=== PATIENT | female | born 1980 | race Caucasian/White ===

== ENCOUNTER → 2016-11-09 | Outpatient (CLI) | payer OTHER ==
--- NOTE | 2016-11-09 23:56 | US ---
EXAMINATION TYPE: US abdomen complete DATE OF EXAM: 11/09/2016 12:51 PM COMPARISON: NONE CLINICAL HISTORY: 35-year-old female LLQ Pain R10.32. TECHNIQUE: Multiple sonographic images of the abdomen are obtained. FINDINGS: Liver Length: 10.4 cm Gallbladder: Surgically absent cm CBD: 0.3 cm Spleen: 9.3 cm Right Kidney: 9.9 x 3.6 x 5.8 cm Left Kidney: 12.1 x 4.3 x 4.3 cm Pancreas: wnl Liver: wnl Gallbladder: Surgically absent CBD: wnl Spleen: wnl Right Kidney: No hydronephrosis or masses seen Left Kidney: No hydronephrosis or masses seen Upper IVC: Somewhat prominent at 2.1 cm Abd Aorta: wnl The risk reduction counselor provides additional targeted scanning along both the right lower and left lower quadr ants. No discrete sonographic abnormality is seen. IMPRESSION: Unremarkable sonographic examination of the abdomen.
--- NOTE | 2016-11-10 00:30 | US ---
EXAMINATION TYPE: US transvaginal DATE OF EXAM: 11/09/2016 1:29 PM COMPARISON: NONE CLINICAL HISTORY: 35-year-old female E28.2,PCOS. LLQ pain. Status post hysterectomy. TECHNIQUE: Multiple transvaginal sonographic images of the pelvis are obtained. History: Uterus: Surgically absent Right Ovary: Surgically absent Left Ovary: 5.6 x 3.1 x 3.2 cm enlarged secondary to 2 cystic lesions. One is a simple cyst measurin g 2.9 x 2.1 x 2.4 cm. The second is a mildly complex cyst with a internal septations measuring 2.7 x 2.2 x 1.9 cm. No evidence of adnexal abnormality or cul-de-sac free fluid otherwise seen. IMPRESSION: 1. Status post hysterectomy and right-sided oophorectomy. 2. Enlargement of the left ovary secondary to 2 cystic lesions one of which is a 2.9 cm dominant foll icle/functional cyst. The second is a 2.7 cm mildly complex cyst with internal septations. Recommend 6-12 month follow-up exam as a hemorrhagic cyst is in the differential. If the finding persists, cont inued follow-up may be indicated. 3. No pelvic free fluid.
== END | disposition home or self-care (01) ==
LOC: RADUSWWP 12:28
PROVIDERS: ATTEND Family Medicine
DX: N83.202 Unspecified ovarian cyst, left side (principal); R10.32 Left lower quadrant pain; Z90.710 Acquired absence of both cervix and uterus
CPT/HCPCS: 76700; 76830

== ENCOUNTER → 2017-02-16 | Outpatient (CLI) | payer OTHER ==
--- NOTE | 2017-02-17 11:26 | MR ---
EXAMINATION TYPE: MR angio head wo con DATE OF EXAM: 02/16/2017 COMPARISON: NONE HISTORY: Cerebral aneurysm, followup study TECHNIQUE: Time of flight images focusing on the [place] of [place] were performed without contrast. FINDINGS: Internal carotid arteries, vertebrobasilar system are patent. There is no evident aneurysm, vascular malformation, or dissection. Infundibula are present bilaterally as on prior exam extending from inferior margins of the internal carotid arteries. IMPRESSION: No evident aneurysm. Exam shows a stable appearance.
== END | disposition home or self-care (01) ==
LOC: RADMRIMAIN 19:37
PROVIDERS: ATTEND Neurological Surgery
DX: I67.1 Cerebral aneurysm, nonruptured (principal)
CPT/HCPCS: 70544

== ENCOUNTER → 2017-09-10 | Outpatient (CLI) | payer OTHER ==
[2017-09-10 11:56] LABS: Basophils % (A) 0 %; Eosinophils # (A) 0.1 k/uL (0-0.7); Eosinophils % (A) 1 %; HGB 13.7 gm/dL (11.4-16.0); Lymphocytes # (A) 1.5 k/uL (1.0-4.8); Lymphocytes % (A) 25 %; MCH 30.5 pg (25.0-35.0); MCHC 34.3 g/dL (31.0-37.0); Mean Platelet Volume 6.8; Monocytes # (A) 0.2 k/uL (0-1.0); Monocytes % (A) 4 %; Neutrophils # (A) 4.2 k/uL (1.3-7.7); Neutrophils % (A) 69 %; Platelet Count 286 k/uL (150-450); RDW 12.2 % (11.5-15.5); WBC 6.1 k/uL (3.8-10.6)
[2017-09-10 12:11] LABS: ALT 31 U/L (9-52); AST 27 U/L (14-36); Albumin 4.5 g/dL (3.5-5.0); Alkaline Phosphatase 49 U/L (38-126); Anion Gap 11 mmol/L; Blood Urea Nitrogen 16 mg/dL (7-17); Calcium 9.7 mg/dL (8.4-10.2); Carbon Dioxide 28 mmol/L (22-30); Chloride 103 mmol/L (98-107); Cholesterol 168 mg/dL (<200); Glucose 94 mg/dL (74-99); HDL Cholesterol 70 mg/dL (40-60); LDL Cholesterol,Calculated 86 mg/dL (0-99); Potassium 4.4 mmol/L (3.5-5.1); Sodium 142 mmol/L (137-145); Total Bilirubin 0.4 mg/dL (0.2-1.3); Total Protein 7.6 g/dL (6.3-8.2); Triglycerides 60 mg/dL (<150)
[2017-09-10 12:27] LABS: T4, Free (Free Thyroxine) 0.86 ng/dL (0.78-2.19)
[2017-09-10 12:42] LABS: Erythrocyte Sedimentation Rate 8 mm/hr (0-20)
[2017-09-10 17:48] LABS: Rheumatoid Factor 7 IU/mL (0-15)
[2017-09-10 17:56] LABS: Vitamin D 25 Hydroxy 30.3 ng/mL (30.0-100.0)
== END | disposition home or self-care (01) ==
LOC: LABWHC1 11:06
PROVIDERS: ATTEND Internal Medicine Critical Care Medicine
DX: H30.90 Unspecified chorioretinal inflammation, unspecified eye (principal); R00.0 Tachycardia, unspecified; Z79.899 Other long term (current) drug therapy
CPT/HCPCS: 36415; 80053; 80061; 82306; 84439; 84443; 85025; 85652; 86038; 86431

== ENCOUNTER 2017-12-16 02:18 | Emergency (ER) | payer OTHER ==
[2017-12-16 02:30] VITALS: RESP 18
--- NOTE | 2017-12-16 03:11 | ED ---
General Adult HPI - General Chief complaint: Overdose Stated complaint: Medication Ingestion, nausea Time Seen by Provider: 12/16/17 02:40 Source: patient Mode of arrival: ambulatory Limitations: no limitations - History of Present Illness Initial comments: 36-year-old female patient presents to the emergency department today for evaluation after ingesting a possible soapy substance. Patient states that she went to take some cough syrup that she has had since July, states that she swallowed and it tasted foul like soap. States that the sent smells like a perfumed soap and is very bubbly. Patient states that she did try several times to make herself vomit however was unable to get much out. States that she did swallow proximal 5 mL of the substance. States that she has another bottle of a similar medication and the 2 smell very different. She denies any heart burn, nausea, or abdominal pain. Patient states that she has been sick with upper respiratory symptoms for the last 4-5 days. States that her throat has been sore and she has been coughing. She states she is coughing up a small amount of clear sputum. She denies any fevers or chills with this. Patient denies any recent rash, shortness breath, chest pain, abdominal pain, nausea, vomiting, diarrhea, constipation, back pain, numbness, tingling, dizziness, weakness, hematuria, dysuria, urinary urgency, urinary frequency, headache, visual changes, or any other complaints. - Related Data Home Medications Medication Instructions Recorded Confirmed ALPRAZolam [ALPRAZolam] 0.5 mg PO HS PRN 05/16/15 12/23/15 Baclofen [Baclofen] 10 mg PO TID 05/16/15 12/23/15 Albuterol Inhaler [Ventolin Hfa 1 - 2 puff INHALATION RT-Q6H PRN 12/23/15 Inhaler] Atenolol 25 mg PO DAILY 12/23/15 12/23/15 Ergocalciferol [Vitamin D2] 50,000 unit PO QMONTH 12/23/15 12/23/15 Levothyroxine Sodium [Synthroid] 25 mcg PO DAILY 12/23/15 12/23/15 Meloxicam 15 mg PO DAILY 12/23/15 12/23/15 Multivitamins, Thera [Multivitamin] 1 tab PO DAILY 12/23/15 12/23/15 Nitrofurantoin Macrocrystal 100 mg PO BID 12/23/15 12/23/15 [Macrodantin] Previous Rx's Medication Instructions Recorded Hydrocodone/Acetaminophen [[place] 1 each PO Q6HR PRN #15 tab 12/23/15 5-325] Allergies Allergy/AdvReac Type Severity Reaction Status Date / Time medroxyprogesterone acetate Allergy Rash/Hives Verified 12/16/17 02:30 [From Depo-Provera] Sulfa (Sulfonamide AdvReac Swelling Verified 12/16/17 02:30 Antibiotics) Review of Systems ROS Statement: Those systems with pertinent positive or pertinent negative responses have been documented in the HPI. ROS Other: All systems not noted in ROS Statement are negative. Past Medical History Past Medical History: Fibromyalgia, Rheumatoid Arthritis (RA), Thyroid Disorder Additional Past Medical History / Comment(s): retinitis pigmentosa, autoimmune retinopathy, lyme disease,eye disease, POTS, MTHFR, cerebral aneurysms, History of Any Multi-Drug Resistant Organisms: None Reported Past Surgical History: Cholecystectomy, Hysterectomy, Orthopedic Surgery Additional Past Surgical History / Comment(s): carpal tunnel repair, nose, endometriosis, foot, colonoscopy, two bladder sugeries, nose, throat and shoulder surgeries. Past Psychological History: Anxiety, Depression Smoking Status: Never smoker Past Alcohol Use History: Rare Past Drug Use History: None Reported General Exam Limitations: no limitations General appearance: alert, in no apparent distress, other (This is a well- developed, well-nourished adult female patient in no acute distress. Vital signs upon presentation are temperature 98.7F, pulse 85, respirations 18, blood pressure 104/71, pulse ox 100% on room air.) Eye exam: Present: normal appearance, PERRL, EOMI. Absent: scleral icterus, conjunctival injection, periorbital swelling ENT exam: Present: normal exam, mucous membranes moist, TM's normal bilaterally. Absent: normal oropharynx (Pharyngeal erythema, no tonsillar hypertrophy, no tonsillar exudate.) Neck exam: Present: normal inspection. Absent: tenderness, meningismus, lymphadenopathy Respiratory exam: Present: normal lung sounds bilaterally. Absent: respiratory distress, wheezes, rales, rhonchi, stridor Cardiovascular Exam: Present: regular rate, normal rhythm, normal heart sounds. Absent: systolic murmur, diastolic murmur, rubs, gallop, clicks GI/Abdominal exam: Present: soft, normal bowel sounds. Absent: distended, tenderness, guarding, rebound, rigid Neurological exam: Present: alert, oriented X3, CN II-XII intact Psychiatric exam: Present: normal affect, normal mood Skin exam: Present: warm, dry, intact, normal color. Absent: rash Course Vital Signs 12/16/17 12/16/17 02:25 03:38 Temperature 98.7 F Pulse Rate 85 78 Respiratory 18 18 Rate Blood Pressure 104/71 118/60 O2 Sat by Pulse 100 100 Oximetry Medical Decision Making - Medical Decision Making 36-year-old female patient presents to the emergency department today for evaluation after ingesting what she believes to be soap. She is not having abdominal pain, heartburn, or throat burning. She is breathing without difficulty. She does have viral upper respiratory infection as well. Chest x- ray showed no acute cardiopulmonary process. She'll be discharged home at this time to follow-up with her primary care physician for recheck in 1-2 days. Return parameters discussed in detail. She verbalizes understanding and agrees with this plan. - Radiology Data Radiology results: report reviewed, image reviewed Two-view x-ray of the chest is obtained. Heart and mediastinum are normal. Lungs are clear. Diaphragm is normal. Bony thorax appears normal. Impression by Dr. Avila shows normal chest with no change. Disposition Clinical Impression: Viral upper respiratory illness, Ingestion of detergent or soap Disposition: HOME SELF-CARE Condition: Good Instructions: Upper Respiratory Infection (ED) Additional Instructions: Use [id number] nasal decongestants. Increase fluids. Follow-up with your primary care physician for recheck 1-2 days. Return here immediately for any new, worsening, or concerning symptoms. Is patient prescribed a controlled substance at d/c from ED?: No Referrals: Alex Auguste MD [Primary Care Provider] - 1-2 days Time of Disposition: 03:46
--- NOTE | 2017-12-16 03:26 | XR ---
EXAMINATION TYPE: XR chest 2V DATE OF EXAM: 12/16/2017 COMPARISON: 08/13/2017 HISTORY: Cough TECHNIQUE: Frontal and lateral views of the chest are obtained. FINDINGS: Heart and mediastinum are normal. Lungs are clear. Diaphragm is normal. Bony thorax appear s normal. IMPRESSION: Normal chest. No change.
[2017-12-16 03:40] VITALS: BP 118/60; PULSE 78
[2017-12-16] MEDS ORDERED: PSEUDOEPHEDRINE 30 MG TAB PO STA (03:44)
[2017-12-16 04:10] VITALS: TEMP 99.2
== END 2017-12-16 04:07 | disposition home or self-care (01) ==
LOC: EC 02:18
DX: T55.0X1A Toxic effect of soaps, accidental (unintentional), initial encounter (principal); J06.9 Acute upper respiratory infection, unspecified; R11.0 Nausea; M79.7 Fibromyalgia; M06.9 Rheumatoid arthritis, unspecified; E07.9 Disorder of thyroid, unspecified; Z79.1 Long term (current) use of non-steroidal anti-inflammatories (NSAID); Z79.899 Other long term (current) drug therapy; Z88.2 Allergy status to sulfonamides; Z88.8 Allergy status to other drugs, medicaments and biological substances
CPT/HCPCS: 71046; 99284

== ENCOUNTER → 2018-01-31 | Outpatient (CLI) | payer OTHER | END | disposition home or self-care (01) | LOC: LABWHC1 13:16 | PROVIDERS: ATTEND Obstetrics & Gynecology | DX: N83.209 Unspecified ovarian cyst, unspecified side (principal) | CPT/HCPCS: 36415; 86304 ==

== ENCOUNTER → 2018-02-21 | Outpatient (CLI) | payer OTHER ==
[2018-02-21 13:08] LABS: Basophils # (A) 0.1 k/uL (0-0.2); Basophils % (A) 1 %; Eosinophils # (A) 0.1 k/uL (0-0.7); Eosinophils % (A) 2 %; HCT 42.2 % (34.0-46.0); HGB 13.3 gm/dL (11.4-16.0); Lymphocytes # (A) 1.4 k/uL (1.0-4.8); Lymphocytes % (A) 32 %; MCH 29.6 pg (25.0-35.0); MCHC 31.6 g/dL (31.0-37.0); MCV 93.5 fL (80.0-100.0); Mean Platelet Volume 6.9; Monocytes # (A) 0.2 k/uL (0-1.0); Monocytes % (A) 4 %; Neutrophils # (A) 2.5 k/uL (1.3-7.7); Neutrophils % (A) 59 %; Platelet Count 224 k/uL (150-450); RBC 4.51 m/uL (3.80-5.40); RDW 12.4 % (11.5-15.5); WBC 4.3 k/uL (3.8-10.6)
[2018-02-21 13:17] LABS: ALT 26 U/L (9-52); AST 24 U/L (14-36); Blood Urea Nitrogen 19 mg/dL (7-17)
[2018-02-21 13:33] LABS: T4, Free (Free Thyroxine) 0.77 ng/dL (0.78-2.19)
== END | disposition home or self-care (01) ==
LOC: LABWHC1 12:22
PROVIDERS: ATTEND Dermatology
DX: L65.0 Telogen effluvium (principal); L70.8 Other acne; L71.0 Perioral dermatitis; D22.39 Melanocytic nevi of other parts of face; L02.821 Furuncle of head [any part, except face]
CPT/HCPCS: 36415; 82565; 84439; 84443; 84450; 84460; 84520; 85025

== ENCOUNTER → 2018-04-14 | Outpatient (CLI) | payer OTHER | END | disposition home or self-care (01) | LOC: LABWHC1 09:42 | PROVIDERS: ATTEND Psychiatry & Neurology Psychiatry | DX: E05.00 Thyrotoxicosis with diffuse goiter without thyrotoxic crisis or storm (principal) | CPT/HCPCS: 36415; 84436; 84443; 84479; 84481 ==

== ENCOUNTER → 2018-07-14 | Outpatient (CLI) | payer OTHER ==
--- NOTE | 2018-07-15 02:11 | MR ---
EXAMINATION TYPE: MR cervical spine wo con DATE OF EXAM: 07/14/2018 COMPARISON: 04/18/2012 HISTORY: Neck pain, headaches, dizziness, BUE weakness TECHNIQUE: Multiplanar, multisequence images of the cervical spine were acquired. There is mild straightening of the vertebra. There is some degenerative disc space narrowing at C4-5 and C5-6. There is mild spurring of the endplates. The cervical spinal cord has normal signal pattern . There is no edema. The spinal canal measures 8 mm at C5-6. There is some mild cervical cord deformi ty related to the straightening and kyphotic curvature of the mid cervical spine. There is no bere kalyani fracture. The brainstem appears intact. Facet joints are intact. There is no cervical paraspinal mass. The posterior elements are intact. IMPRESSION: Spondylotic changes in the cervical spine with progression of the mild kyphotic curvature at the mid cervical spine. No significant spinal stenosis. No fracture. There is slight decrease in the C5-6 cer vical disc herniation posteriorly compared to old exam consistent with desiccation. Spinal canal is d ecreased from 9 mm to 8 mm compared to old exam. There is decrease in the C3-4 and C4-5 small posteri or disc herniation related to desiccation compared to old exam.
== END | disposition home or self-care (01) ==
LOC: RADMRIMAIN 20:42
PROVIDERS: ATTEND Psychiatry & Neurology Neurology
DX: M50.21 Other cervical disc displacement, high cervical region (principal); M47.812 Spondylosis without myelopathy or radiculopathy, cervical region; M40.292 Other kyphosis, cervical region; Z88.2 Allergy status to sulfonamides; Z88.8 Allergy status to other drugs, medicaments and biological substances
CPT/HCPCS: 72141

== ENCOUNTER 2018-08-19 08:26 | Emergency (ER) | payer OTHER ==
--- NOTE | 2018-08-19 08:40 | ED ---
General Adult HPI - General Chief complaint: Chest Pain Stated complaint: SOB, Chest Pain Time Seen by Provider: 08/19/18 08:29 Source: patient, RN notes reviewed Mode of arrival: ambulatory Limitations: no limitations - History of Present Illness Initial comments: 37-year-old female with a past medical history of fibromyalgia, rheumatoid arthritis, autoimmune retinopathy, POTS presents to the emergency department for a chief complaint of chest pain. Patient states she has had intermittent sharp left-sided chest pain for the past 3 days. She states this comes and goes. She states when it occurs it lasts for a few minutes. Patient denies any inciting factors. She denies any alleviating factors. Patient denies pain worsening with deep breathing. No recent travel. No leg swelling. No oral contraceptive use. No smoking. Patient also admits to shortness of breath that worsens when the pain occurs. She admits she does feel somewhat short of breath at baseline. Patient denies any history of blood clots. Patient does follow with a leather sprayer through [place] for dysrhythmia as as well as POTS. Patient denies any previous MIs. She denies diabetes. Patient does admit to a mild cough for the past 3 weeks. She has been nauseous as well. She has not vomited. Patient say she has also been very anxious as she is having a biopsy of the right breast done. She states this could be contributing to her pain. Patient has no other complaints at this time including abdominal pain, vomiting , headache, or visual changes. - Related Data Home Medications Medication Instructions Recorded Confirmed Atenolol 25 mg PO DAILY 12/23/15 08/19/18 Multivitamins, Thera [Multivitamin] 1 tab PO DAILY 12/23/15 08/19/18 Atenolol 25 mg PO HS PRN 08/19/18 08/19/18 Budesonide-Formot 160-4.5 Mcg 2 puff INHALATION RT-BID 08/19/18 08/19/18 [Symbicort 160-4.5 Mcg Inhaler] Dextroamphetamine/Amphetamine 15 - 30 mg PO DAILY PRN 08/19/18 08/19/18 [Adderall] Montelukast [Singulair] 10 mg PO HS 08/19/18 08/19/18 Allergies Allergy/AdvReac Type Severity Reaction Status Date / Time medroxyprogesterone acetate Allergy Rash/Hives Verified 08/19/18 09:16 [From Depo-Provera] Sulfa (Sulfonamide AdvReac Swelling Verified 08/19/18 09:16 Antibiotics) Review of Systems ROS Statement: Those systems with pertinent positive or pertinent negative responses have been documented in the HPI. ROS Other: All systems not noted in ROS Statement are negative. Past Medical History Past Medical History: Fibromyalgia, Rheumatoid Arthritis (RA), Thyroid Disorder Additional Past Medical History / Comment(s): retinitis pigmentosa, autoimmune retinopathy, lyme disease,eye disease, POTS, MTHFR, cerebral aneurysms, History of Any Multi-Drug Resistant Organisms: None Reported Past Surgical History: Cholecystectomy, Hysterectomy, Orthopedic Surgery Additional Past Surgical History / Comment(s): carpal tunnel repair, nose, endometriosis, foot, colonoscopy, two bladder sugeries, nose, throat and shoulder surgeries. Past Psychological History: Anxiety, Depression Smoking Status: Never smoker Past Alcohol Use History: Rare Past Drug Use History: Marijuana General Exam Limitations: no limitations General appearance: alert, in no apparent distress Head exam: Present: atraumatic, normocephalic, normal inspection Eye exam: Present: normal appearance, PERRL, EOMI. Absent: scleral icterus, conjunctival injection, periorbital swelling ENT exam: Present: normal exam, normal oropharynx, mucous membranes moist, normal external ear exam Neck exam: Present: normal inspection, full ROM. Absent: tenderness, meningismus, lymphadenopathy Respiratory exam: Present: rales (crackles noted to left lung base), chest wall tenderness (left sided mild chest wall tenderness). Absent: respiratory distress, wheezes, rhonchi, stridor Cardiovascular Exam: Present: regular rate, normal rhythm, normal heart sounds. Absent: systolic murmur, diastolic murmur, rubs, gallop, clicks GI/Abdominal exam: Present: soft, normal bowel sounds. Absent: distended, tenderness, guarding, rebound, rigid Extremities exam: Absent: calf tenderness (No calf Tenderness or swelling noted in the lower extremities.) Neurological exam: Present: alert, oriented X3, CN II-XII intact Psychiatric exam: Present: normal affect, normal mood Course Vital Signs 08/19/18 08/19/18 08/19/18 08:30 08:50 10:10 Temperature 96 F L 98.3 F Pulse Rate 90 77 Pulse Rate [ 74 [employer] ] Respiratory 22 18 Rate Blood Pressure 99/71 96/65 O2 Sat by Pulse 99 100 Oximetry EKG Findings - EKG Comments: EKG Findings:: Normal sinus rhythm, ventricular rate 75, AR interval 158, QTC 462 Medical Decision Making - Medical Decision Making 87-year-old well-appearing female presents to the emergency room for a chief complaint of sharp chest pain 3 days. Pain comes and goes. Patient does have tenderness noted to the chest wall. Mild shortness of breath. However vitals are stable, patient is 99% on room air. Perc negative. Chest x-ray clear. EKG shows a normal sinus rhythm without ST elevation. CBC unremarkable. CMP does show a BUN of 27, patient likely dehydrated. Troponin is less than 0.012. Patient is a low risk candidate and heart score of 2. She does not smoke or have diabetes. She will follow up with primary care for chest pain and return here if it worsens. Patient does have hematuria and is aware of this, will follow up with her primary care provider. Urine will be cultured. Gonorrhea and chlamydia added due to many bacteria and mucus. - Lab Data Result diagrams: 08/19/18 08:53 08/19/18 08:53 Lab Results 08/19/18 08/19/18 08/19/18 Range/Units 08:53 08:53 08:53 WBC 4.3 (3.8-10.6) k/uL RBC 4.54 (3.80-5.40) m/uL Hgb 13.9 (11.4-16.0) gm/dL Hct 40.7 (34.0-46.0) % MCV 89.8 (80.0-100.0) fL MCH 30.7 (25.0-35.0) pg MCHC 34.2 (31.0-37.0) g/dL RDW 12.3 (11.5-15.5) % Plt Count 248 (150-450) k/uL Neutrophils % 57 % Lymphocytes % 31 % Monocytes % 6 % Eosinophils % 3 % Basophils % 1 % Neutrophils # 2.4 (1.3-7.7) k/uL Lymphocytes # 1.3 (1.0-4.8) k/uL Monocytes # 0.3 (0-1.0) k/uL Eosinophils # 0.1 (0-0.7) k/uL Basophils # 0.0 (0-0.2) k/uL PT 11.4 (9.0-12.0) sec INR 1.1 (<1.2) APTT 25.5 (22.0-30.0) sec Sodium 138 (137-145) mmol/L Potassium 4.1 (3.5-5.1) mmol/L Chloride 104 (98-107) mmol/L Carbon Dioxide 22 (22-30) mmol/L Anion Gap 12 mmol/L BUN 27 H (7-17) mg/dL Creatinine 0.89 (0.52-1.04) mg/dL Est GFR (CKD-EPI)AfAm >90 (>60 ml/min/1.73 sqM) Est GFR (CKD-EPI)NonAf 82 (>60 ml/min/1.73 sqM) Glucose 81 (74-99) mg/dL Calcium 9.7 (8.4-10.2) mg/dL Magnesium 2.0 (1.6-2.3) mg/dL Total Bilirubin 1.1 (0.2-1.3) mg/dL AST 25 (14-36) U/L ALT 35 (9-52) U/L Alkaline Phosphatase 49 (38-126) U/L Troponin I (0.000-0.034) ng/mL Total Protein 7.8 (6.3-8.2) g/dL Albumin 4.9 (3.5-5.0) g/dL Amylase 54 (30-110) U/L Lipase 98 (23-300) U/L Urine Color Urine Appearance (Clear) Urine pH (5.0-8.0) Ur Specific [place] (1.001-1.035) Urine Protein (Negative) Urine Glucose (UA) (Negative) Urine Ketones (Negative) Urine Blood (Negative) Urine Nitrite (Negative) Urine Bilirubin (Negative) Urine Urobilinogen (<2.0) mg/dL Ur Leukocyte Esterase (Negative) Urine RBC (0-5) /hpf Urine WBC (0-5) /hpf Ur Squamous Epith Cells (0-4) /hpf Urine Bacteria (None) /hpf Urine Mucus (None) /hpf Influenza Type A RNA (Not Detectd) Influenza Type B (PCR) (Not Detectd) 08/19/18 08/19/18 08/19/18 Range/Units 08:53 08:53 08:53 WBC (3.8-10.6) k/uL RBC (3.80-5.40) m/uL Hgb (11.4-16.0) gm/dL Hct (34.0-46.0) % MCV (80.0-100.0) fL MCH (25.0-35.0) pg MCHC (31.0-37.0) g/dL RDW (11.5-15.5) % Plt Count (150-450) k/uL Neutrophils % % Lymphocytes % % Monocytes % % Eosinophils % % Basophils % % Neutrophils # (1.3-7.7) k/uL Lymphocytes # (1.0-4.8) k/uL Monocytes # (0-1.0) k/uL Eosinophils # (0-0.7) k/uL Basophils # (0-0.2) k/uL PT (9.0-12.0) sec INR (<1.2) APTT (22.0-30.0) sec Sodium (137-145) mmol/L Potassium (3.5-5.1) mmol/L Chloride (98-107) mmol/L Carbon Dioxide (22-30) mmol/L Anion Gap mmol/L BUN (7-17) mg/dL Creatinine (0.52-1.04) mg/dL Est GFR (CKD-EPI)AfAm (>60 ml/min/1.73 sqM) Est GFR (CKD-EPI)NonAf (>60 ml/min/1.73 sqM) Glucose (74-99) mg/dL Calcium (8.4-10.2) mg/dL Magnesium (1.6-2.3) mg/dL Total Bilirubin (0.2-1.3) mg/dL AST (14-36) U/L ALT (9-52) U/L Alkaline Phosphatase (38-126) U/L Troponin I <0.012 (0.000-0.034) ng/mL Total Protein (6.3-8.2) g/dL Albumin (3.5-5.0) g/dL Amylase (30-110) U/L Lipase (23-300) U/L Urine Color Yellow Urine Appearance Cloudy H (Clear) Urine pH 6.0 (5.0-8.0) Ur Specific [place] 1.027 (1.001-1.035) Urine Protein 2+ H (Negative) Urine Glucose (UA) Negative (Negative) Urine Ketones 1+ H (Negative) Urine Blood Moderate H (Negative) Urine Nitrite Negative (Negative) Urine Bilirubin Negative (Negative) Urine Urobilinogen <2.0 (<2.0) mg/dL Ur Leukocyte Esterase Trace H (Negative) Urine RBC 12 H (0-5) /hpf Urine WBC 1 (0-5) /hpf Ur Squamous Epith Cells 4 (0-4) /hpf Urine Bacteria Many H (None) /hpf Urine Mucus Many H (None) /hpf Influenza Type A RNA Not Detected (Not Detectd) Influenza Type B (PCR) Not Detected (Not Detectd) Disposition Clinical Impression: Atypical chest pain, Chest wall tenderness Disposition: TRANSFER TO PSYCH HOSP/UNIT Condition: Good Instructions (If sedation given, give patient instructions): Chest Pain (ED) Additional Instructions: Please follow up with primary care in 1-2 days for chest pain and blood in urine.. Drink plenty of fluids for dehydration. If you're having worsening symptoms such as increased chest pain or shortness of breath return here immediately to the emergency department. Is patient prescribed a controlled substance at d/c from ED?: No Referrals: Alex Auguste MD [Primary Care Provider] - 1-2 days Time of Disposition: 10:46
[2018-08-19] MEDS ORDERED: ONDANSETRON 4 MG/2 ML VIAL IVP STA (08:48)
[2018-08-19] MEDS ORDERED: SODIUM CHLORIDE 0.9% 1,000 ML IV STA (08:48)
[2018-08-19] MEDS ORDERED: MORPHINE SULFATE 2 MG/ML SYRINGE IVP STA (08:48)
[2018-08-19] MEDS ORDERED: ASPIRIN 81 MG PO STA (08:48)
--- NOTE | 2018-08-19 09:24 | XR ---
EXAMINATION TYPE: XR chest 2V DATE OF EXAM: 08/19/2018 COMPARISON: 12/16/2017 INDICATION: Chest pain TECHNIQUE: Frontal and lateral views of the chest are obtained. FINDINGS: The heart size is normal. The pulmonary vasculature is normal. The lungs are clear. IMPRESSION: 1. No acute pulmonary process.
[2018-08-19 09:35] LABS: Basophils % (A) 1 %; Eosinophils # (A) 0.1 k/uL (0-0.7); Eosinophils % (A) 3 %; HCT 40.7 % (34.0-46.0); HGB 13.9 gm/dL (11.4-16.0); Lymphocytes # (A) 1.3 k/uL (1.0-4.8); Lymphocytes % (A) 31 %; MCH 30.7 pg (25.0-35.0); MCHC 34.2 g/dL (31.0-37.0); MCV 89.8 fL (80.0-100.0); Mean Platelet Volume 6.4; Monocytes # (A) 0.3 k/uL (0-1.0); Monocytes % (A) 6 %; Neutrophils # (A) 2.4 k/uL (1.3-7.7); Neutrophils % (A) 57 %; Platelet Count 248 k/uL (150-450); RBC 4.54 m/uL (3.80-5.40); RDW 12.3 % (11.5-15.5); WBC 4.3 k/uL (3.8-10.6)
[2018-08-19 09:39] LABS: Appearance,Urine Cloudy (Clear); Bacteria,Urine Many /hpf; Bilirubin,Urine Negative (Negative); Blood,Urine Moderate (Negative); Color,Urine Yellow; Glucose,Urine (UA) Negative (Negative); Ketones,Urine 1+ (Negative); Leukocyte Esterase,Urine Trace (Negative); Mucus,Urine Many /hpf; Nitrite,Urine Negative (Negative); Protein,Urine 2+ (Negative); RBC,Urine 12 /hpf (0-5); Specific Gravity,Urine 1.027 (1.001-1.035); Squamous Epithelial Cell,Urine 4 /hpf (0-4); Urobilinogen,Urine <2.0 mg/dL (<2.0); WBC,Urine 1 /hpf (0-5)
[2018-08-19 09:43] LABS: ALT 35 U/L (9-52); AST 25 U/L (14-36); Albumin 4.9 g/dL (3.5-5.0); Alkaline Phosphatase 49 U/L (38-126); Amylase 54 U/L (30-110); Anion Gap 12 mmol/L; Blood Urea Nitrogen 27 mg/dL (7-17); Calcium 9.7 mg/dL (8.4-10.2); Carbon Dioxide 22 mmol/L (22-30); Chloride 104 mmol/L (98-107); Glucose 81 mg/dL (74-99); Lipase 98 U/L (23-300); Potassium 4.1 mmol/L (3.5-5.1); Sodium 138 mmol/L (137-145); Total Bilirubin 1.1 mg/dL (0.2-1.3); Total Protein 7.8 g/dL (6.3-8.2)
[2018-08-19 09:45] LABS: INR 1.1 (<1.2)
[2018-08-19 09:46] LABS: Partial Thromboplastin Time 25.5 sec (22.0-30.0); Prothrombin Time 11.4 sec (9.0-12.0)
[2018-08-19 10:12] VITALS: RESP 18
[2018-08-19 11:08] VITALS: BP 102/65; PULSE 75; TEMP 98
[2018-08-20 13:30] LABS: C. trachomatis,PCR Negative (Neg,Equiv); Chlamydia trachomatis Source Urine; N. gonorrhoeae,PCR Negative (Neg,Equiv); Neisseria Source Urine
== END 2018-08-19 11:05 | disposition home or self-care (01) ==
LOC: EC 08:26
DX: R07.89 Other chest pain (principal); R06.02 Shortness of breath; R05 Cough; R31.9 Hematuria, unspecified; F41.9 Anxiety disorder, unspecified; Z79.51 Long term (current) use of inhaled steroids; Z79.899 Other long term (current) drug therapy; Z88.2 Allergy status to sulfonamides; Z88.8 Allergy status to other drugs, medicaments and biological substances
CPT/HCPCS: 36415; 71046; 80053; 81001; 82150; 83690; 83735; 84484; 85025; 85610; 85730; 87086; 87491; 87502; 87591; 93005; 96361; 96374; 99285

== ENCOUNTER → 2018-08-26 | Outpatient (CLI) | payer OTHER ==
[2018-08-26 13:00] VITALS: BP 107/63; PULSE 81; RESP 16; BMI 18.4
--- NOTE | 2018-08-26 13:51 | P.GSHP ---
History of Present Illness H&P Date: 08/26/18 Chief Complaint: nodule in the left breast Michelle is a 37-year-old white female who presents with a nodule which she noted under the right nipple areolar complex. She states that she has had bilateral breast implants for approximately 16 years. Over the last several years she has noticed some increased nodularity under both nipple areolar complexes that on the right is become more prominent. She had a bilateral mammogram performed on . The bilateral mammogram was felt to be benign but a right breast ultrasound was performed. On the right breast ultrasound the patient was noted to have a lobulated heterogeneous hypoechoic area which was approximately 9 x 11 mm in size. Ultrasound core biopsy was recommended of this area. No ultrasound was performed of the left breast. The patient has had no breast biopsy in the past. She has no history of any trauma or infection in the breast. The patient complains of aching discomfort in her right lateral breast with extension into the axilla. She has had extensive orthopedic procedures including bilateral shoulder surgery the right shoulder was operated on once in the left shoulder 3 times. Additionally she has degenerative disc disease in her cervical spine and has been recommended to undergo surgery for this. The patient drinks coffee several times a week. She also eats chocolate several times a week. She does not drink soda. She does not smoke and is not exposed to secondhand smoke. Family History: maternal grandmother: breast and endometrial cancer maternal great aunt: breast cancer maternal great grandmother: breast father: melanoma paternal uncle: melanoma and brain cancer paternal grandmother: cancer ? type Hormonal History: menarche: 13 pregnacy: 4, children 3, 1 miscarrage, first live : 18. breast fed: yes periods: partial hysterectomy, one ovary left thought had ovarian cancer ( endometriosis) BCP: 1 year hormones: deproprovea had a reaction and hospitalized Surgical history: 1. Cholecystectomy 2. Hysterectomy 3. 2 bladder surgeries 4. 4 shoulder surgeries 5. Carpal tunnel bilaterally 6. Surgery on nose for deviated septum 7. Tonsils and adenoids 8. Polyp some vocal cords 9. Surgery of her left foot 10. Bilateral breast implants Past medical history: 1. Degenerative disc disease 2. Rheumatoid and osteoarthritis 3. Line disease 4. Graves' disease with hyperthyroidism in the past 5. Brain aneurysms being followed conservatively 6. Small CVA in the past 7. Breast pain 8. History of peptic ulcer disease 9. Asthma 10. History of bladder suspensions 11. Clotting abnormality MTHFR , (increased risk for clotting) Social History: smoke: used to smoke socially not now alcohol: 5 drinks/month drugs: Marijuana medical card/at times its used to relax her so she can sleep - Constitutional Constitutional: Reports sweats - EENT Comment: Retinitis pigmentosa Autoimmune retinopathy Bilateral cataracts Eyes: bilateral blurred vision, bilateral pain Ears: bilateral: decreased hearing, tinnitus Ears, nose, mouth and throat: Reports headache, Denies sore throat - Breasts Breasts: bilateral: as per HPI - Cardiovascular Comment: postural orthostatic hypotension syndrome Arrhythmia - Respiratory Comment: asthma Respiratory: Denies cough, Denies 7 - Gastrointestinal Comment: PUD Gastrointestinal: Reports constipation, Reports diarrhea, Denies abdominal pain , Denies nausea, Denies vomiting - Genitourinary (Female) Comment: 2 bladder surgeries suspension UTI abcess on kidney in past Interstitial cystitis Genitourinary: Reports hematuria, Denies dysuria - Menstruation Menstruation: Reports post hysterectomy - Musculoskeletal Comment: degenerative disc disease - Integumentary Comment: dry skin Integumentary: Reports rash - Neurological Comment: brain aneurysm Neurological: Denies numbness, Denies weakness - Psychiatric Psychiatric: Denies anxiety, Denies depression - Endocrine Comment: hypothyroid in the past cortisol levels were high in the past Endocrine: Reports weight change - Hematologic/Lymphatic Comment: none - Allergic/Immunologic Allergic/Immunologic: Reports seasonal allergies Past Medical History Past Medical History: Fibromyalgia, Rheumatoid Arthritis (RA), Thyroid Disorder Additional Past Medical History / Comment(s): retinitis pigmentosa, autoimmune retinopathy, lyme disease,eye disease, POTS, MTHFR, cerebral aneurysms, herniated disc of neck History of Any Multi-Drug Resistant Organisms: None Reported Past Surgical History: Breast Surgery, Cholecystectomy, Hysterectomy, Orthopedic Surgery Additional Past Surgical History / Comment(s): carpal tunnel repair, nose, endometriosis, foot, colonoscopy, two bladder sugeries, nose, throat and 4 shoulder surgeries. bilat breast implants 2001 Past Psychological History: ADD/ADHD, Anxiety, Depression Smoking Status: Former smoker Past Alcohol Use History: Occasional Past Drug Use History: Marijuana Medications and Allergies Home Medications Medication Instructions Recorded Confirmed Type Atenolol 25 mg PO DAILY 12/23/15 08/26/18 History Multivitamins, Thera [Multivitamin] 1 tab PO DAILY 12/23/15 08/22/18 History Atenolol 25 mg PO HS PRN 08/19/18 08/22/18 History Budesonide-Formot 160-4.5 Mcg 2 puff INHALATION RT-BID 08/19/18 08/22/18 History [Symbicort 160-4.5 Mcg Inhaler] Dextroamphetamine/Amphetamine 15 - 30 mg PO DAILY PRN 08/19/18 08/22/18 History [Adderall] Montelukast [Singulair] 10 mg PO HS 08/19/18 08/22/18 History Ciprofloxacin HCl [Cipro] 500 mg PO BID 08/26/18 08/26/18 History Ergocalciferol (Vitamin D2) 50,000 unit PO DAILY 08/26/18 08/26/18 History [Vitamin D2] Vit C/E/Zn/Coppr/Lutein/Zeaxan 1 each PO 08/26/18 History [Preservision Areds 2 Softgel] Vitamin B Complex 1 each PO 08/26/18 History Allergies Allergy/AdvReac Type Severity Reaction Status Date / Time medroxyprogesterone acetate Allergy Rash/Hives Verified 08/26/18 13:06 [From Depo-Provera] Sulfa (Sulfonamide AdvReac Swelling Verified 08/26/18 13:06 Antibiotics) Surgical - Exam Vital Signs Pulse Resp BP Pulse Ox 81 16 107/63 100 08/26/18 12:56 08/26/18 12:56 08/26/18 12:56 08/26/18 12:56 BMI 18.5 - General thin - Eyes normal ocular movement - ENT no hearing loss, no congestion - Neck no masses, trachea midline - Respiratory normal respiratory effort, clear to auscultation - Cardiovascular Rhythm: regular Heart Sounds: normal: S1, S2 - Abdomen Abdomen: soft, non tender, no guarding, no rigid, no rebound - Integumentary normal turgor tatoo - Neurologic no disoriented, no combative - Musculoskeletal normal gait, normal posture - Psychiatric oriented to time, oriented to person, oriented to place, speech is normal, memory intact breast exam: Right breast exam: Multiple positional exam changes related to prior implant placement on examination there is a small area of nodularity in the retroareolar region which may be scar tissue with fibrocystic disease No other masses or nodules of concern noted Right axilla: No adenopathy of concern Left breast: Multiple positional exam changes related to prior implant placement on examination there is slight increased nodularity in the retroareolar region with no discrete dominant mass noted Left axilla: No adenopathy of concern Results mammogram and ultrasound results reviewed Assessment and Plan Assessment: Impression: 1. Degenerative disc disease 2. Rheumatoid and osteoarthritis 3. Kotlik disease 4. Graves' disease with hyperthyroidism in the past 5. Brain aneurysms being followed conservatively 6. Small CVA in the past 7. Breast pain 8. History of peptic ulcer disease 9. Asthma 10. History of bladder suspensions 11. Clotting abnormality MTHFR , (increased risk for clotting) 12. family history of cancer 13. abnormal uyltrasound of the right breast 14. nodule of the right breast 15. ? breast pain felt to be musculoskeletal in nature 16. scoliosis Plan: 1. Ultrasound-guided biopsy of right breast lesion 2. Await results of left breast ultrasound 3. Abstain from caffeine to help decrease fibrocystic breast discomfort 4. continue to follow with neurosurgeon CC: Dr. Holland, Dr. Izquierdo, DR. Vitaliy Baker ([place])
--- NOTE | 2018-08-29 08:31 | USB ---
Reason for exam: clinical finding. History: Family history of breast cancer in maternal grandmother. Implants in both breasts, 2001. Indicated problem(s): palpable abnormality and breast implant problem in the left breast. US Breast LT Left complete breast ultrasound includes all four quadrants, the retroareolar region and axilla. Finding demonstrates no cystic or solid lesion seen. The implant valve is under the palpable region. These results were verbally communicated with the patient and result sheet given to the patient on 08/26/18. ASSESSMENT: Probably benign, BI-RAD 3 RECOMMENDATION: Ultrasound of the left breast in 6 months. Manage patient on a clinical basis.
== END ==
LOC: WWCWWP 12:50
PROVIDERS: ATTEND Surgery
DX: N63.20 Unspecified lump in the left breast, unspecified quadrant (principal)

== ENCOUNTER → 2018-08-29 | Outpatient (CLI) | payer OTHER ==
[2018-08-29 12:42] LABS: Basophils % (A) 1 %; Eosinophils % (A) 1 %; HCT 40.1 % (34.0-46.0); HGB 13.1 gm/dL (11.4-16.0); Lymphocytes # (A) 1.6 k/uL (1.0-4.8); Lymphocytes % (A) 38 %; MCH 29.8 pg (25.0-35.0); MCHC 32.6 g/dL (31.0-37.0); MCV 91.5 fL (80.0-100.0); Mean Platelet Volume 6.9; Monocytes # (A) 0.2 k/uL (0-1.0); Monocytes % (A) 4 %; Neutrophils # (A) 2.3 k/uL (1.3-7.7); Neutrophils % (A) 54 %; Platelet Count 251 k/uL (150-450); RBC 4.38 m/uL (3.80-5.40); RDW 12.2 % (11.5-15.5); WBC 4.2 k/uL (3.8-10.6)
[2018-08-29 20:27] LABS: ALT 16 U/L (8-44); AST 21 U/L (13-35); Alkaline Phosphatase 40 U/L (41-126); Calcium 9.6 mg/dL (8.7-10.3); Carbon Dioxide 25.2 mmol/L (21.6-31.8); Chloride 107 mmol/L (96-109); Cholesterol 121 mg/dL (0-200); Glucose 88 mg/dL (70-110); LDL Cholesterol,Calculated 61.8 mg/dL (0.0-131.0); Potassium 4.8 mmol/L (3.5-5.5); Sodium 138 mmol/L (135-145); Total Bilirubin 0.4 mg/dL (0.3-1.2); Total Protein 6.6 g/dL (6.2-8.2)
== END | disposition home or self-care (01) ==
LOC: LABWHC1 11:23
PROVIDERS: ATTEND Family Medicine
DX: Z00.00 Encounter for general adult medical examination without abnormal findings (principal)
CPT/HCPCS: 36415; 80053; 80061; 82306; 84439; 84443; 84481; 85025

== ENCOUNTER → 2018-08-31 | Day surgery (SDC) | payer OTHER ==
[2018-08-31 11:50] VITALS: RESP 12; BMI 18.4
[2018-08-31 12:48] VITALS: BP 103/70; PULSE 71; TEMP 98.7
--- NOTE | 2018-08-31 13:55 | USB ---
EXAMINATION TYPE: US breast needle core RT, MG diagnostic mammo RT wo CAD DATE OF EXAM: 08/31/2018 CLINICAL HISTORY: R92.8 ABNORMAL MAMMOGRAM. Abnormal outside ultrasound. TECHNIQUE: Ultrasound guided core biopsy of right breast with clip placement and follow-up two-view m ammogram. COMPARISON: NONE FINDINGS: The procedure of ultrasound guided core biopsy was explained to the patient. Benefits, alt ernatives, and risks were discussed. Risks included possible implant rupture. An informed consent was then obtained. The patient was placed in supine positioning for imaging and for the procedure. Preprocedure imaging redemonstrates a vague hypoechoic subcentimeter area just below the dermal layer inferior retroareol ar region, not definitive lesion. Lesion was not overly suspicious and appears similar to adjacent fi broglandular tissue. Given options of short-term follow-up and sampling patient requested sampling. T he overlying skin was prepped and draped in usual sterile fashion. Lidocaine buffered with bicarbona te was used as anesthetic into the skin and subcutaneous tissue up to area of concern in the right br east. A zane was made with surgical scalpel. Under ultrasound guidance, a 18-gauge Bard device was used to obtain 3 core samples. Following this, a biopsy clip was left in lesion. The patient tolerated the procedure well without any immediate complication. The patient was kept in the radiology department for short stay after the procedure and then discharged home in stable condi tion. Postprocedure mammogram shows successful deployment of clip. IMPRESSION: Successful, uncomplicated ultrasound guided core biopsy of area of concern in the right breast, full pathology results to follow. Low index of suspicion noted at time of procedure.
== END ==
LOC: RADUSWWP 11:00
PROVIDERS: ATTEND Surgery
DX: N60.11 Diffuse cystic mastopathy of right breast (principal); Z88.2 Allergy status to sulfonamides; Z88.8 Allergy status to other drugs, medicaments and biological substances
CPT/HCPCS: 88305; 77065; 19083; A4648; J2001

== ENCOUNTER → 2018-09-15 | Outpatient (CLI) | payer OTHER ==
[2018-09-15 09:55] VITALS: BP 109/74; PULSE 77; RESP 16; BMI 18.7
--- NOTE | 2018-09-15 10:20 | P.PN ---
Subjective Progress Note Date: 09/15/18 Michelle is a 37 -year-old white female who was initially seen on 3118. At that time she was concerned about a nodule in her right nipple areolar region. A core biopsy has been performed of this which reveals only fibrocystic change. She has no complaints related to the biopsy. She also at that time noted some increased nodularity under her left nipple complex and ultrasound was performed which was felt to be most likely benign and repeat ultrasound in 6 months time was recommended. The patient does complain of autoimmune-like symptoms related to hives and swelling as well as joint pain. Most recently she has had discomfort in her right lateral chest with extension into the axilla. She has had extensive orthopedic procedures including bilateral shoulder surgery. She additionally has degenerative disc disease in her cervical spine and was told that the cervical spine changes are not related to the discomfort in her right arm and axilla. Objective - Constitutional General appearance: Present: average body habitus - EENT Eyes: Present: EOMI ENT: Present: hearing grossly normal - Respiratory Respiratory: bilateral: CTA - Cardiovascular Rhythm: regular Heart sounds: normal: S1, S2 - Integumentary Integumentary Comment(s): Area of prior biopsy clean and dry right breast, no evidence of any infection Reevaluation of right axilla: Shoddy adenopathy non-worrisome Assessment and Plan Assessment: Impression: 1. Patient status post right breast ultrasound core biopsy benign fibrocystic changes 2. Ultrasound left breast felt to be probably benign repeat left breast ul trasound in 6 months, the region of the implant valve was identified 3. Rheumatoid and osteoarthritis 4.lyme disease 5. graves disease 6. Brain aneurysms 7. Small CVA in the past 8. Breast pain (discussed causes and possible treatment, book given to patient by Keily Araya) 9. History of peptic ulcer disease 10. Asthma 11. Bladder suspension 12. Clotting abnormality 13. Family history of cancer 14. Scoliosis 15. No evidence of any breast cancer at this time Had a discussion with the patient that the findings on pathology related to the biopsy for benign. The patient does continue to complain of discomfort in the right upper outer quadrant of the breast extending into the axilla and in the right upper arm. She has concerns that this may be related to her implants. At this time she is going to consider evaluation at [facility]. She is considering having removal of the implants. I had a discussion with our laboratory and no autoimmune testing for silicone is available at this location. Plan: 1. Repeat bilateral breast ultrasound in 6 months time 2. Repeat examination here in 6 months time 3. Consider evaluation for implant removal as per patient's concerns Cc: Timbo Curry, Dr. Vitaliy Baker
== END ==
LOC: WWCWWP 09:44
PROVIDERS: ATTEND Surgery
DX: Z53.9 Procedure and treatment not carried out, unspecified reason (principal)

== ENCOUNTER → 2018-10-01 | Outpatient (CLI) | payer OTHER ==
--- NOTE | 2018-10-04 13:48 | BMR ---
EXAMINATION TYPE: MR breast BILAT wo/w con DATE OF EXAM: 10/01/2018 COMPARISON: Outside mammogram report dated 08/16/2018 and right breast limited ultrasound report. Left breast ultrasound dated 08/26/2018 and right breast core needle biopsy dated 08/31/2018. HISTORY: Inconclusive mammogram, possible palpable lump in left axilla area, tenderness in arms and a xilla. Recent benign right breast biopsy on 08/31/2018 in regards to a right palpable periareolar abnor mality. Recent left breast ultrasound demonstrating the implant valve at the location of the palpable abnormality, but otherwise negative. TECHNIQUE: A series of fat and water weighted images in the long and short axis views of both breasts are obtained in conjunction with dynamic contrast MRI with subtraction technique. The patient was i njected with 6 mL intravenous Gadavist gadolinium contrast. Three-dimensional and additional postpr ocessing imaging is created on independent workstation and reviewed during official interpretation of this study. FINDINGS: There are bilateral retropectoral saline implants. The breasts are composed of extreme fibr oglandular tissue. There is symmetric moderate background parenchymal enhancement, somewhat limiting sensitivity the exam. There is a retroareolar biopsy marker indicating the previous benign right breast biopsy crating susc eptibility artifact. No evidence of extracapsular rupture is seen. There are small radial folds noted at the medial aspect of the breast implants without evidence of intracapsular rupture. There is no suspicious internal mammary, axillary or intramammary adenopathy. There is a left axillar y lymph node that may correspond to the patient's palpable left abnormality within the axilla measuri ng 7 mm in short axis containing a normal regular fatty hilum and demonstrate no cortical thickening. Smaller left axillary and internal mammary lymph nodes are seen around the periphery of the lateral aspect of the left breast implant. No suspicious T2 hyperintense masses or cystic masses are seen. IMPRESSION: BI-RADS 1-No MRI evidence of malignancy. Annual screening mammography is recommended. Note the patien t's left axillary palpable abnormality could correspond to regular-appearing morphologically normal n onenlarged left axillary and intramammary lymph nodes. Additionally the breast implants demonstrate n o evidence of intracapsular nor extracapsular rupture at this time.
== END ==
LOC: RADMRIMAIN 07:16
PROVIDERS: ATTEND Surgery
DX: R92.2 Inconclusive mammogram (principal); Z80.3 Family history of malignant neoplasm of breast; Z98.82 Breast implant status
CPT/HCPCS: C8908; A9585; 77049

== ENCOUNTER → 2018-10-19 | Outpatient (CLI) | payer OTHER ==
[2018-10-19 16:24] LABS: Thyroid Peroxidase Antibodies 33.8 U/mL (0.0-60.0)
[2018-10-19 17:00] LABS: T4, Free (Free Thyroxine) 0.9 ng/dL (0.80-1.80)
[2018-10-19 18:34] LABS: ACTH 9.44 pg/mL (0.00-45.99)
== END | disposition home or self-care (01) ==
LOC: LABWHC1 08:40
PROVIDERS: ATTEND Internal Medicine
DX: E05.90 Thyrotoxicosis, unspecified without thyrotoxic crisis or storm (principal); E27.40 Unspecified adrenocortical insufficiency
CPT/HCPCS: 36415; 82024; 82533; 84439; 84443; 84445; 84481; 86376

== ENCOUNTER → 2019-01-11 | Outpatient (CLI) | payer OTHER ==
[2019-01-11 12:59] LABS: Basophils % (A) 1 %; Eosinophils # (A) 0.1 k/uL (0-0.7); Eosinophils % (A) 2 %; HCT 39.9 % (34.0-46.0); HGB 13.2 gm/dL (11.4-16.0); Lymphocytes # (A) 1.4 k/uL (1.0-4.8); Lymphocytes % (A) 34 %; MCH 30.3 pg (25.0-35.0); MCHC 33.1 g/dL (31.0-37.0); MCV 91.7 fL (80.0-100.0); Mean Platelet Volume 7.3; Monocytes # (A) 0.2 k/uL (0-1.0); Monocytes % (A) 5 %; Neutrophils # (A) 2.3 k/uL (1.3-7.7); Neutrophils % (A) 56 %; Platelet Count 252 k/uL (150-450); RBC 4.35 m/uL (3.80-5.40); RDW 14.2 % (11.5-15.5); WBC 4.1 k/uL (3.8-10.6)
[2019-01-11 18:13] LABS: African American GFR (CKD) 106.9 (60.0-200.0); Albumin 4.6 g/dL (3.80-4.90); Albumin/Globulin Ratio 2.19 (1.60-3.17); Anion Gap 5.6 mmol/L (4.00-12.00); Calcium 9.7 mg/dL (8.7-10.3); Carbon Dioxide 28.4 mmol/L (21.6-31.8); Globulin 2.1 g/dL (1.6-3.3); Potassium 4.6 mmol/L (3.5-5.5); Total Bilirubin 0.5 mg/dL (0.3-1.2); Total Protein 6.7 g/dL (6.2-8.2)
[2019-01-11 18:42] LABS: T4, Free (Free Thyroxine) 0.8 ng/dL (0.80-1.80)
== END | disposition home or self-care (01) ==
LOC: LABWHC1 12:20
PROVIDERS: ATTEND Family Medicine
DX: R94.6 Abnormal results of thyroid function studies (principal)
CPT/HCPCS: 36415; 80053; 84439; 84443; 84481; 85025

== ENCOUNTER → 2019-03-09 | Outpatient (CLI) | payer OTHER ==
[2019-03-09 19:33] LABS: T4, Free (Free Thyroxine) 0.9 ng/dL (0.80-1.80)
== END | disposition home or self-care (01) ==
LOC: LABWHC1 11:19
PROVIDERS: ATTEND Internal Medicine
DX: E05.90 Thyrotoxicosis, unspecified without thyrotoxic crisis or storm (principal)
CPT/HCPCS: 36415; 84439; 84443

== ENCOUNTER → 2019-03-20 | Outpatient (CLI) | payer OTHER ==
--- NOTE | 2019-03-20 12:03 | USB ---
Reason for exam: clinical finding. History: Family history of breast cancer in maternal grandmother. Benign US breast needle core RT of the right breast, August 31, 2018. Implants in both breasts, 2002. Indicated problem(s): palpable abnormality in the right breast. Physical Findings: Nurse Summary: retroareolar palpable lump (nurse cw). US Breast BILAT Left complete breast ultrasound includes all four quadrants, the retroareolar region and axilla. Finding demonstrates a triangle fluid at 12 o'clock, hypoechoic adjacent to the implant, not clearly seen on 10/01/18 MRI, 5 month follow up recommended, a 0.5 x 1.0 x 0.7cm oval, vascular node at 2 o'clock, prominent but nonenlarged, 5 month follow up recommended and subareolar palpable corresponds to the implant valve. Right complete breast ultrasound includes all four quadrants, the retroareolar region and axilla. Finding demonstrates 7 o'clock palpable finding corresponds to the implant valve. These results were verbally communicated with the patient and result sheet given to the patient on 03/20/19. ASSESSMENT: Probably benign, BI-RAD 3 RECOMMENDATION: Follow-up diagnostic mammogram of both breasts in 5 months. Back on schedule for July 2019. Ultrasound of the left breast in 5 months.
== END | disposition home or self-care (01) ==
LOC: RADUSWWP 10:19
PROVIDERS: ATTEND Surgery
DX: R92.8 Other abnormal and inconclusive findings on diagnostic imaging of breast (principal); Z80.3 Family history of malignant neoplasm of breast; Z98.82 Breast implant status

== ENCOUNTER → 2019-03-23 | Outpatient (CLI) | payer OTHER ==
[2019-03-23 10:04] VITALS: BP 110/73; PULSE 62; RESP 16; TEMP 97.7; BMI 18.7
--- NOTE | 2019-03-23 10:50 | P.PN ---
Subjective Progress Note Date: 03/23/19 Principal diagnosis: breast pain, questions abour breast implants recalled for increased risk of anaplastic large cell lymphoma Chief complaint: Mastodynia, fibrocystic breast changes, bilateral breast implants recently have been recalled, textured silicone with saline on the inside patient has questions regarding these Michelle is a 38-year-old white female who was initially seen on 3119. At that time she was concerned about a nodule in her right nipple areolar region. A core biopsy was performed which revealed only fibrocystic changes. She also at that time noticed some increased nodularity under her left nipple complex and an ultrasound was performed which is felt to be most likely benign and repeat ultrasound in 6 months time was recommended. Repeat ultrasound was performed on [id number]. This revealed in the left breast in the triangle fluid at 12:00 hypoechoic adjacent to the implant not clearly seen on [id number] MRI. 5 month follow-up recommended. A 0.5 x 1 x 0.7 cm of vascular noted to o'clock which was prominent was noted but not enlarged, a 5 month follow-up was recommended. The subareolar palpable lesion corresponded to the implant valve. Right complete breast ultrasound revealed at 7:00 probable finding corresponded to the implant valve. The recommendation after ultrasound was 4 bilateral repeat mammogram in 5 months and an ultrasound of the left breast in 5 months as well. The patient continues to have autoimmune-like symptoms related to hives and swelling in her joints. The patient is having bilateral chest wall discomfort with extension into both axillas. The location is both breast throughout both breasts. This has been ongoing for several years. She is uncertain as to what precipitates the pain. She has had implants in place for 17 years. The implants were recently recalled as they are textured silicone shell saline filled implants. Additionally she has bilateral periareolar nodularity. The nodularity has not changed. We have discussed causes of fibrocystic disease including caffeinated beverages which the patient drinks only rarely. She does not eat chocolate. And she does not smoke and is not exposed to secondhand smoke. Family History: maternal grandmother: breast and endometrial cancer maternal great aunt: breast cancer maternal great grandmother: breast father: melanoma paternal uncle: melanoma and brain cancer paternal grandmother: cancer ? type Hormonal History: menarche: 13 pregnacy: 4, children 3, 1 misc[place]age, first live : 18. breast fed: yes periods: partial hysterectomy, one ovary left thought had ovarian cancer (endometriosis) BCP: 1 year hormones: deproprovea had a reaction and hospitalized Surgical history: 1. Cholecystectomy 2. Hysterectomy 3. 2 bladder surgeries 4. 4 shoulder surgeries 5. Carpal tunnel bilaterally 6. Surgery on nose for deviated septum 7. Tonsils and adenoids 8. Polyp some vocal cords 9. Surgery of her left foot 10. Bilateral breast implants Past medical history: 1. Degenerative disc disease 2. Rheumatoid and osteoarthritis 3. [place] disease 4. Naila's thyroiditis in the past her thyroid functions are now normal, she is not on any thyroid medication 5. Brain aneurysms being followed conservatively 6. Small CVA in the past 7. Breast pain 8. History of peptic ulcer disease 9. Asthma 10. History of bladder suspensions 11. Clotting abnormality MTHFR , (increased risk for clotting)not taking anything Social History: smoke: used to smoke socially not now alcohol: 5 drinks/month drugs: Marijuana medical card/at times its used to relax her so she can sleep - Constitutional Constitutional: Reports sweats - EENT Comment: Retinitis pigmentosa Autoimmune retinopathy Bilateral cataracts Eyes: bilateral blurred vision, bilateral pain Ears: bilateral: decreased hearing, tinnitus Ears, nose, mouth and throat: Reports headache, Denies sore throat - Breasts Breasts: bilateral: as per HPI, bilateral breast pain greatest upper outer quadrant areas, bilateral fibrocystic changes with nodularity particularly in t he periareolar areas, bilateral breast implants approximately 17 years ago these are textured silicone shell saline - Cardiovascular Comment: postural orthostatic hypotension syndrome Arrhythmia - Respiratory Comment: asthma Respiratory: Denies cough, - Gastrointestinal Comment: PUD, gastritis, colitis Gastrointestinal: Reports constipation, Reports diarrhea, Denies abdominal pain, Denies nausea, Denies vomiting - Genitourinary (Female) Comment: 2 bladder surgeries suspension UTI abcess on kidney in past Interstitial cystitis Genitourinary: Reports hematuria, Denies dysuria - Menstruation Menstruation: Reports post hysterectomy - Musculoskeletal Comment: degenerative disc disease - Integumentary Comment: dry skin Integumentary: Reports rash - Neurological Comment: brain aneurysm, prior CVA Neurological: Denies numbness, Denies weakness - Psychiatric Psychiatric: Denies anxiety, Denies depression - Endocrine Comment: hypothyroid in the past cortisol levels were high in the past Endocrine: Reports weight change - Hematologic/Lymphatic Comment: none - Allergic/Immunologic Allergic/Immunologic: Reports seasonal allergies Past Medical History Past Medical History: Fibromyalgia, Rheumatoid Arthritis (RA), Thyroid Disorder Additional Past Medical History / Comment(s): retinitis pigmentosa, autoimmune retinopathy, lyme disease,eye disease, POTS, MTHFR, cerebral aneurysms, herniated disc of neck History of Any Multi-Drug Resistant Organisms: None Reported Past Surgical History: Breast Surgery, Cholecystectomy, Hysterectomy, Orthopedic Surgery Additional Past Surgical History / Comment(s): carpal tunnel repair, nose, endometriosis, foot, colonoscopy, two bladder sugeries, nose, throat and 4 shoulder surgeries. bilat breast implants 2001 Past Psychological History: ADD/ADHD, Anxiety, Depression Smoking Status: Former smoker Past Alcohol Use History: Occasional Past Drug Use History: Marijuana Objective - Vital Signs Vital signs: Vital Signs Temp 97.7 F 03/23/19 09:58 Pulse 62 03/23/19 09:58 Resp 16 03/23/19 09:58 BP 110/73 03/23/19 09:58 Pulse Ox 100 03/23/19 09:58 Intake & Output 03/22/19 03/23/19 03/23/19 18:59 06:59 18:59 Weight 57.606 kg - Exam BMI 18.8 - Constitutional General appearance: Present: average body habitus - EENT Eyes: Present: EOMI ENT: Present: hearing grossly normal - Neck Neck: Present: normal ROM - Respiratory Respiratory: bilateral: CTA - Cardiovascular Rhythm: regular Heart sounds: normal: S1, S2 - Gastrointestinal General gastrointestinal: Present: soft - Integumentary Integumentary: Present: normal turgor - Musculoskeletal Musculoskeletal: Present: gait normal - Psychiatric Psychiatric: Present: A&O x's 3, appropriate affect, intact judgment & insight - Additional findings Additional findings: breast exam: Right breast: Multi-positional exam reveals implant in place, fibrocystic changes, no nodularity of concern Right axilla: Shotty adenopathy noticed discrete adenopathy of concern Left breast: Multi-positional exam reveals implant in place, fibrocystic changes, no nodularity of concern Left axilla: No adenopathy of concern Assessment and Plan Assessment: Impression: 1. Left breast textured silicone implant with fluid now noted around the breast 2. Prior core biopsy of right breast benign fibrocystic changes 3. Bilateral breast implants for approximately 17 years 4. Fibrocystic breast disease 5. Rheumatoid and osteoarthritis 6. Lyme disease 7. Thyroid disease/Naila's 8. Brain aneurysms 9. Small CVA in the past 10. Asthma 11. Bladder suspension 12 clotting abnormality 13. Family history of cancer 14. Scoliosis 15. No lesions of concern noted in the right breast After discussion with the patient regarding textured silicone shell implants and increased risk of anaplastic large cell lymphoma. Secondary to the fact that there is some fluid noted in relationship to the left breast implant which was not present previously the fluid will be sampled and sent for amino testing CD30. I discussed this with the radiologist. It is only a small amount of fluid however it is Onset. The patient understands the risks and benefits and this will be performed. Following this she will return and we will discuss further treatment options. She continues to have bilateral breast pain. Patient does not drink caffeinated beverages, she does not eat chocolate, she does not smoke and is not exposed to secondhand smoke, and is not taking any hormones. Plan: 1. Ultrasound-guided aspiration of fluid around the left breast implant 2. We have consider genetic counseling and she states her insurance will not cover it at this time 3. Medical management of autoimmune diseases 4. Possible consultation with plastic surgery for implant removal after fluid aspiration Kalyani Echeverria
== END | disposition home or self-care (01) ==
LOC: WWCWWP 09:50
PROVIDERS: ATTEND Surgery
DX: Z53.9 Procedure and treatment not carried out, unspecified reason (principal)

== ENCOUNTER → 2019-03-24 | Outpatient (CLI) | payer OTHER ==
--- NOTE | 2019-03-24 19:42 | MR ---
EXAMINATION TYPE: MR angio head wo con DATE OF EXAM: 03/24/2019 COMPARISON: 02/16/2017 HISTORY: Headache / Cerebral aneurysm, nonrupture TECHNIQUE: Time of flight images focusing on the [place] of Matt were performed without contrast. FINDINGS: There is arterial flow in the vertebrobasilar artery system. There is arterial flow in the anterior middle and posterior cerebral arteries. There is arterial flow in both distal internal carot id arteries. There is no evidence of arterial stenosis. There is no evidence of aneurysm or neovascul arity. There is no mass effect. IMPRESSION: Negative exam. No change compared to old exam. No evidence of intracranial aneurysm.
--- NOTE | 2019-03-24 20:40 | MR ---
EXAMINATION TYPE: MR brain wo/w con DATE OF EXAM: 03/24/2019 COMPARISON: HISTORY: Headache / Cerebral aneurysm, nonrupture, vision loss, ringing in ears, balance issues, conf usion TECHNIQUE: Multiplanar, multisequence images of the brain and brainstem is performed without and with IV contras t, utilizing 6 mL intravenous Gadavist . FINDINGS: Ventricles have normal size. There is no mass effect nor midline shift. There is no sign of intracranial hemorrhage. There is no evidence of cerebral edema. There is no evidence of cortical in farct. Corpus callosum appears normal. Brainstem is intact. Sella turcica appears normal. Orbits appe ar normal. There is a 4 mm single focus of increased signal in the white matter left posterior tempor al lobe. IMPRESSION: Single white matter high signal small focus in the left temporal lobe. Otherwise negative exam. Left temporal lobe focus is a change compared to old MR scan of 12/13/2014.
== END ==
LOC: RADMRIMAIN 17:13
PROVIDERS: ATTEND Psychiatry & Neurology Neurology
DX: I67.1 Cerebral aneurysm, nonruptured (principal); R51 Headache
CPT/HCPCS: 70544; 70553; A9585

== ENCOUNTER 2019-03-28 13:32 | Observation (INO) | payer OTHER ==
[2019-03-28] MEDS ORDERED: SODIUM CHLORIDE 0.9% 1,000 ML IV STA ×2 (14:07)
--- NOTE | 2019-03-28 14:13 | ED ---
Chest Pain HPI - General Chief Complaint: Chest Pain Stated Complaint: Side pain, arm & chest pain Time Seen by Provider: 03/28/19 13:57 Source: patient, RN notes reviewed, old records reviewed Mode of arrival: wheelchair Limitations: no limitations - History of Present Illness Initial Comments: Since this 38-year-old female presents prescribed today for evaluation for chief complaint of sudden onset of right-sided abdominal chest pain. Patient remained on the right arm and also complains of some left-sided chest wall pain and pain range on the left arm to the elbow. Patient reports symptoms have happened suddenly and she had an episode of diaphoresis and felt very dizzy and lightheaded at that time. Patient reports that the pain seems to persist on the right side of her chest as well as the left. Patient states that she's had chronic abdominal and chronic chest wall tenderness with this pain seems different. She states that she has extensive medical history including retinopathy and a lesion over her brain which she had an MRI earlier this week which is stable. Patient has had no other significant complaints. - Related Data Home Medications Medication Instructions Recorded Confirmed Atenolol 25 mg PO BID 12/23/15 03/28/19 Budesonide-Formot 160-4.5 Mcg 2 puff INHALATION RT-BID 08/19/18 03/28/19 [Symbicort 160-4.5 Mcg Inhaler] Dextroamphetamine/Amphetamine 15 - 30 mg PO DAILY PRN 08/19/18 03/28/19 [Adderall] Vitamin B Complex 1 cap PO DAILY 08/26/18 03/28/19 Cholecalciferol [Vitamin D3 (25 5,000 unit PO DAILY 03/23/19 03/28/19 Mcg = 1000 Iu)] Cetirizine HCl 10 mg PO DAILY 03/28/19 03/28/19 Melatonin (Unknown Strength) 1 tab PO HS PRN 03/28/19 03/28/19 Allergies Allergy/AdvReac Type Severity Reaction Status Date / Time medroxyprogesterone acetate Allergy Rash/Hives Verified 03/28/19 14:37 [From Depo-Provera] protamine AdvReac Rash/Hives Verified 03/28/19 14:37 Sulfa (Sulfonamide AdvReac Swelling Verified 03/28/19 14:37 Antibiotics) Review of Systems ROS Statement: Those systems with pertinent positive or pertinent negative responses have been documented in the HPI. ROS Other: All systems not noted in ROS Statement are negative. EKG Findings - EKG Comments: EKG Findings:: EKG performed at 1350 pressure is sinus rhythm low voltage.. Possible anterolateral infarct age undetermined. Abnormal EKG. Ventricular 69 bpm. Was 166 most seconds. QRS ration is 82 ms. QT QTC 392/420 ms. Past Medical History Past Medical History: Fibromyalgia, Rheumatoid Arthritis (RA), Thyroid Disorder Additional Past Medical History / Comment(s): retinitis pigmentosa, autoimmune retinopathy, lyme disease,eye disease, POTS, MTHFR, cerebral aneurysms, herniated disc of neck, fluid to left side of her chest History of Any Multi-Drug Resistant Organisms: None Reported Past Surgical History: Breast Surgery, Cholecystectomy, Hysterectomy, Orthopedic Surgery Additional Past Surgical History / Comment(s): carpal tunnel repair, nose, endometriosis, foot, colonoscopy, two bladder sugeries, nose, throat and 4 shoulder surgeries. bilat breast implants 2002 Past Anesthesia/Blood Transfusion Reactions: Postoperative Nausea & Vomiting (PONV) Past Psychological History: ADD/ADHD, Anxiety, Depression Smoking Status: Former smoker Past Alcohol Use History: Occasional Past Drug Use History: Marijuana - Past Family History Mother Additional Family Medical History / Comment(s): strong maternal hx of breast cancer. patient's maternal grandmother and many great aunts/cousins have had a breast cancer Father Additional Family Medical History / Comment(s): several of patient's fathers' aunts and first cousins have been dx with breast cancer (some of from this) General Exam - General Exam Comments Initial Comments: 38 yo female, no distress. General: Well appearing, well nourished, in no distress. Oriented x 3, normal mood and affect . Ambulating without difficulty. Skin: Good turgor, no rash, unusual bruising or prominent lesions Hair: Normal texture and distribution. HEENT: Head: Normocephalic, atraumatic, no visible or palpable masses, depres sions, or scaring. Eyes: Visual acuity intact, conjunctiva clear, sclera non-icteric, EOM intact, PERRL. Ears: EACs clear, TMs translucent & cone of light visualized. hearing intact. Nose: No external lesions, mucosa non-inflamed, septum and turbinates normal Mouth: Mucous membranes moist, no mucosal lesions. Teeth/Gums: No obvious caries or periodontal disease. No gingival inflammation or significant resorption. Pharynx: Mucosa non-inflamed, no tonsillar hypertrophy or exudate Neck: Supple, without lesions, bruits, or adenopathy, thyroid non-enlarged and non-tender Heart: No cardiomegaly or thrills; regular rate and rhythm, no murmur or gallop Lungs: Clear to auscultation and percussion Abdomen: Bowel sounds normal, Patient has minimal right left-sided rib and upper quadrant tenderness. Back: Spine normal without deformity or tenderness, no CVA tenderness Extremities: No amputations or deformities, cyanosis, edema or varicosities, peripheral pulses intact Musculoskeletal: Normal gait and station. No misalignment, asymmetry, crepitation, defects, tenderness, masses, effusions, decreased range of motion, instability, atrophy or abnormal strength or tone in the head, neck, spine, ribs, pelvis or extremities. Neurologic: CN 2-12 normal. Sensation to pain, touch, and proprioception normal. DTRs normal in upper and lower extremities. No pathologic reflexes. Limitations: no limitations Course Vital Signs 03/28/19 03/28/19 03/28/19 13:43 13:52 14:00 Temperature 97.3 F L Pulse Rate 76 72 Respiratory 18 18 Rate Blood Pressure 99/65 100/75 O2 Sat by Pulse 100 100 100 Oximetry 03/28/19 03/28/19 14:30 16:14 Temperature Pulse Rate 64 67 Respiratory 18 16 Rate Blood Pressure 95/78 97/61 O2 Sat by Pulse 100 99 Oximetry Chest Pain [facility] Patient is a 38-year-old female, she presents today for evaluation for diaphoresis and lightheaded episode, with subsequent right-sided left sided chest pain. Patient reports that the pain is persisting. She has feels "off. Patient had EKG was performed showed normal sinus rhythm with low-voltage QRS. She does have full blood pressures but she has been on atenolol for quite some time. She reports her screening representative and put her on many years ago. At the same Patient normal lab work. D-dimer test was negative, and initial troponin is negative. Her symptoms of start approximately one hour prior to arriving to the ER. With episode of diaphoresis discussed the concern for possibility of cardiac syndrome. Patient's case was discussed with , recommended admission for cardiac rule out. Patient is agreeable to this. Disposition Clinical Impression: Chest pain Disposition: ADMITTED IP TO THIS HOSP Condition: Stable Is patient prescribed a controlled substance at d/c from ED?: No Referrals: Alex Auguste MD [Primary Care Provider] - 1-2 days Time of Disposition: 17:41
[2019-03-28 14:52] LABS: INR 0.9 (<1.2)
[2019-03-28 14:53] LABS: ALT 25 U/L (9-52); AST 25 U/L (14-36); African American GFR (CKD) >90 (>60 ml/min/1.73 sqM); Albumin 4.4 g/dL (3.5-5.0); Alkaline Phosphatase 38 U/L (38-126); Anion Gap 7 mmol/L; Blood Urea Nitrogen 22 mg/dL (7-17); Calcium 9.6 mg/dL (8.4-10.2); Carbon Dioxide 28 mmol/L (22-30); Chloride 102 mmol/L (98-107); D-Dimer 0.24 mg/L FEU (<0.60); Glucose 85 mg/dL (74-99); Magnesium 2.2 mg/dL (1.6-2.3); Partial Thromboplastin Time 23.7 sec (22.0-30.0); Potassium 4.9 mmol/L (3.5-5.1); Sodium 137 mmol/L (137-145); Total Bilirubin 0.1 mg/dL (0.2-1.3); Total Protein 7.1 g/dL (6.3-8.2)
[2019-03-28 14:55] LABS: Basophils % (A) 1 %; Eosinophils # (A) 0.1 k/uL (0-0.7); Eosinophils % (A) 2 %; HCT 37.7 % (34.0-46.0); HGB 13.4 gm/dL (11.4-16.0); Lymphocytes # (A) 1.6 k/uL (1.0-4.8); Lymphocytes % (A) 26 %; MCH 30.9 pg (25.0-35.0); MCHC 35.4 g/dL (31.0-37.0); MCV 87.3 fL (80.0-100.0); Mean Platelet Volume 6.2; Monocytes # (A) 0.2 k/uL (0-1.0); Monocytes % (A) 4 %; Neutrophils # (A) 3.9 k/uL (1.3-7.7); Neutrophils % (A) 65 %; Platelet Count 240 k/uL (150-450); RBC 4.32 m/uL (3.80-5.40); RDW 11.9 % (11.5-15.5)
--- NOTE | 2019-03-28 16:07 | XR ---
EXAMINATION TYPE: XR chest 2V DATE OF EXAM: 03/28/2019 COMPARISON: 08/19/2018 INDICATION: Chest pain TECHNIQUE: Frontal and lateral views of the chest are obtained. FINDINGS: The heart size is normal. The pulmonary vasculature is normal. The lungs are clear. IMPRESSION: 1. No acute pulmonary process.
[2019-03-28] MEDS ORDERED: NITROGLYCERIN SL TABS 0.4 MG TAB SUBLINGUAL PRN (17:42)
[2019-03-28] MEDS ORDERED: ASPIRIN 81 MG PO STA (17:42)
[2019-03-28] MEDS ORDERED: MORPHINE SULFATE 4 MG/ML SYRINGE IV PRN (17:42)
[2019-03-28] MEDS ORDERED: NON FORMULARY DRUG (Dextroamphetamine/Amphetamine [Adderall] 30 MG) PO PRN (21:49)
[2019-03-28] MEDS ORDERED: MELATONIN 3 MG TABLET PO SCH (22:00)
[2019-03-28] MEDS ORDERED: FAMOTIDINE 20 MG TAB PO SCH (22:00)
[2019-03-29 03:23] LABS: Cholesterol 129 mg/dL (<200); HDL Cholesterol 40 mg/dL (40-60); LDL Cholesterol,Calculated 71 mg/dL (0-99); Triglycerides 90 mg/dL (<150)
[2019-03-29] MEDS ORDERED: SYMBICORT 160-4.5 MCG INHALER INHALATION SCH (08:00)
[2019-03-29] MEDS ORDERED: LISINOPRIL 10 MG TAB PO SCH (09:00)
[2019-03-29] MEDS ORDERED: FOLIC ACID-VIT B COMPLEX-VIT C 1 CAP PO SCH (09:00)
[2019-03-29] MEDS ORDERED: ATENOLOL 25 MG TAB PO SCH (09:00)
[2019-03-29] MEDS ORDERED: ASPIRIN 81 MG PO SCH (09:00)
[2019-03-29] MEDS ORDERED: ASPIRIN 325 MG TAB PO SCH (09:00)
[2019-03-29] MEDS ORDERED: CHOLECALCIFEROL 1,000 UNIT TAB PO SCH (09:00)
[2019-03-29] MEDS ORDERED: LORATADINE 10 MG TAB PO SCH (09:00)
[2019-03-29 11:26] VITALS: BMI 18.7
--- NOTE | 2019-03-29 11:42 | P.CRDCN ---
History of Present Illness History of present illness: This is a pleasant 38-year-old female past medical history significant for postural orthostatic tachycardia syndrome, fibromyalgia, arthritis, lyme disease and ADD. She follows with a motion picture commentator out of [facility]. We have been asked to see her in consultation secondary to dizziness and chest pain. She states yesterday while doing some errands around the house she started feeling d aziza and light headed associated with diaphoresis like she was going to pass out. She then she started feeling a pain in her chest that started in the flank region bilaterally and radiated to the middle of her chest. The chest discomfort was described as a tightness. There was no radiation down the arm, into the neck, back or jaw. She denies associated shortness of breath, nausea, vomiting or palpitations. The discomfort in her chest. Started to subside over time with no specific alleviating factor. She is seen and examined resting comfortably in bed in no acute distress. Blood pressure on arrival was 99/65 with a heart rate of 76. Telemetry tracings reveal persistent sinus mechanism with no episodes of tachycardia. Currently maintained on atenolol 25 mg daily. EKG reveals sinus mechanism with heart rate of [address] or T wave abnormalities noted. Chest x-ray is negative for acute cardiopulmonary process. Laboratory data reviewed, CBC unremarkable, d-dimer 0.4, sodium 137, potassium 4.9, creatinine 0.83, magnesium 2.2, cardiac enzymes negative 3, proBNP 49, LDL 71 and HDL 40. She recently had an MRI of the brain that showed single white matter high signal small focus in the left temporal lobe. At the time of my exam: CONSTITUTIONAL: Denies fever. Denies chills. EYES: Denies blurred vision. Denies vision changes. Denies eye pain. EARS, NOSE, MOUTH & THROAT: Denies headache. Denies sore throat. Denies ear pain. CARDIOVASCULAR: Denies chest pain. Denies shortness of breath. Denies orthopnea. Denies PND. Denies palpitations. RESPIRATORY: Denies cough. GASTROINTESTINAL: Denies abdominal pain. Denies diarrhea. Denies constipation. Denies nausea. Denies vomiting. MUSCULOSKELETAL: Denies myalgias. INTEGUMENTARY: Denies pruitis. Denies rash. NEUROLOGIC: Denies numbness. Denies tingling. Denies weakness. PSYCHIATRIC: Denies anxiety. Denies depression. ENDOCRINE: Denies fatigue. Denies weight change. Denies polydipsia. Denies polyurina. GENITOURINARY: Denies burning, hematuria or urgency with micturation. HEMATOLOGIC: Denies history of anemia. Denies bleeding. Blood pressure 87/49 heart rate 60 afebrile maintaining oxygen saturation on nasal cannula GENERAL: This is a 38-year-old female in no apparent distress at the time of my examination. HEENT: Head is atraumatic, normocephalic. Pupils are equal, round. Sclerae anicteric. Conjunctivae are clear. Mucous membranes of the mouth are moist. Neck is supple. There is no jugular venous distention. No carotid bruit is heard. LUNGS: Clear to auscultation no wheezes, rales or rhonchi. No chest wall tenderness is noted on palpation or with deep breathing. HEART: Regular rate and rhythm without murmurs, rubs or gallops. S1 and S2 heard. ABDOMEN: Soft, nontender. Bowel sounds are heard. No organomegaly noted. EXTREMITIES: No evidence of peripheral edema and no calf tenderness noted. VASCULAR: Radial and dorsalis pedis pulses palpated, no evidence of clubbing. NEUROLOGIC: Patient is awake, alert and oriented x3. ASSESSMENT Chest pain, atypical. An acute event has been ruled out. Near syncope History of POTS, telemetry unremarkable for tachycardia PLAN Proceed with stress echo to assess for stress induced ischemia. Obtain 2D echocardiogram and doppler study to assess cardiac structure and function. Hold atenolol for hypotension. Check for orthostatic changes. If stress test is normal he may be discharged from a cardiac perspective. Thank you kindly for this consultation. Nurse Practitioner note has been reviewed, I agree with a documented findings and plan of care. Patient was seen and examined. Past Medical History Past Medical History: Fibromyalgia, Rheumatoid Arthritis (RA), Thyroid Disorder Additional Past Medical History / Comment(s): retinitis pigmentosa, autoimmune retinopathy, lyme disease,eye disease, POTS, MTHFR- blood clot disorder, cerebral aneurysms, herniated disc of neck, fluid to left side of her chest. lesion 4mm on left temporal lobe History of Any Multi-Drug Resistant Organisms: None Reported Past Surgical History: Breast Surgery, Cholecystectomy, Hysterectomy, Orthopedic Surgery Additional Past Surgical History / Comment(s): carpal tunnel repair, nose deviated septum and broken, endometriosis, foot, 3 colonoscopy, two bladder sugeries, nose, throat and 4 shoulder surgeries. bilat breast implants 2001. Left overie is only thing left Past Anesthesia/Blood Transfusion Reactions: Postoperative Nausea & Vomiting (PONV) Smoking Status: Never smoker - Past Family History Mother Additional Family Medical History / Comment(s): strong maternal hx of breast cancer. patient's maternal grandmother and many great aunts/cousins have had a breast cancer Father Additional Family Medical History / Comment(s): several of patient's fathers' aunts and first cousins have been dx with breast cancer (some of from this) Medications and Allergies Home Medications Medication Instructions Recorded Confirmed Type Atenolol 25 mg PO DAILY 12/23/15 03/28/19 History Budesonide-Formot 160-4.5 Mcg 2 puff INHALATION RT-BID 08/19/18 03/28/19 History [Symbicort 160-4.5 Mcg Inhaler] Dextroamphetamine/Amphetamine 15 - 30 mg PO DAILY PRN 08/19/18 03/28/19 History [Adderall] Vitamin B Complex 1 cap PO DAILY 08/26/18 03/28/19 History Cholecalciferol [Vitamin D3 (25 5,000 unit PO DAILY 03/23/19 03/28/19 History Mcg = 1000 Iu)] Cetirizine HCl 10 mg PO DAILY 03/28/19 03/28/19 History Melatonin (Unknown Strength) 1 tab PO HS PRN 03/28/19 03/28/19 History Ranitidine HCl 150 mg PO HS 03/28/19 03/28/19 History Allergies Allergy/AdvReac Type Severity Reaction Status Date / Time medroxyprogesterone acetate Allergy Rash/Hives Verified 03/28/19 21:01 [From Depo-Provera] protamine AdvReac Rash/Hives Verified 03/28/19 21:01 Sulfa (Sulfonamide AdvReac Swelling Verified 03/28/19 21:01 Antibiotics) Physical Exam Vitals: Vital Signs Temp Pulse Pulse Resp BP BP Pulse Ox 03/29/19 08:00 98.4 F 60 17 87/49 98 03/29/19 04:00 98.5 F 56 L 18 96/57 97 03/29/19 03:50 18 03/29/19 00:00 98.3 F 67 18 93/53 98 03/28/19 21:13 98.3 F 66 18 105/66 100 03/28/19 16:14 67 16 97/61 99 03/28/19 14:30 64 18 95/78 100 03/28/19 14:00 72 18 100/75 100 03/28/19 13:52 100 03/28/19 13:43 97.3 F L 76 18 99/65 100 Intake and Output 03/28/19 03/29/19 03/29/19 22:59 06:59 14:59 Other: # Voids 1 1 Results 03/28/19 14:29 03/28/19 14:29 Cardiac Enzymes 03/28/19 03/28/19 03/28/19 Range/Units 14:29 14:29 19:55 AST 25 (14-36) U/L Troponin I <0.012 <0.012 (0.000-0.034) ng/mL 03/29/19 Range/Units 02:40 AST (14-36) U/L Troponin I <0.012 (0.000-0.034) ng/mL Coagulation 03/28/19 Range/Units 14:29 PT 10.0 (9.0-12.0) sec APTT 23.7 (22.0-30.0) sec Lipids 03/29/19 Range/Units 02:43 Triglycerides 90 (<150) mg/dL Cholesterol 129 (<200) mg/dL HDL Cholesterol 40 (40-60) mg/dL CBC 03/28/19 Range/Units 14:29 WBC 6.0 (3.8-10.6) k/uL RBC 4.32 (3.80-5.40) m/uL Hgb 13.4 (11.4-16.0) gm/dL Hct 37.7 (34.0-46.0) % Plt Count 240 (150-450) k/uL Comprehensive Metabolic Panel 03/28/19 Range/Units 14:29 Sodium 137 (137-145) mmol/L Potassium 4.9 (3.5-5.1) mmol/L Chloride 102 (98-107) mmol/L Carbon Dioxide 28 (22-30) mmol/L BUN 22 H (7-17) mg/dL Creatinine 0.83 (0.52-1.04) mg/dL Glucose 85 (74-99) mg/dL Calcium 9.6 (8.4-10.2) mg/dL AST 25 (14-36) U/L ALT 25 (9-52) U/L Alkaline Phosphatase 38 (38-126) U/L Total Protein 7.1 (6.3-8.2) g/dL Albumin 4.4 (3.5-5.0) g/dL Current Medications Generic Name Dose Route Start Last Admin Trade Name Freq PRN Reason Stop Dose Admin Aspirin 81 mg 03/29/19 09:00 Aspirin PO DAILY [facility] Budesonide/Formoterol Fumarate 2 puff 03/29/19 08:00 Symbicort 160-4.5 Mcg Inhaler INHALATION RT-BID [facility] Cholecalciferol 5,000 unit 03/29/19 09:00 Vitamin D3 (25 Mcg = 1000 Iu) PO DAILY [facility] Famotidine 20 mg 03/28/19 22:00 03/28/19 22:21 Pepcid PO 20 mg HS [facility] Administration Loratadine 10 mg 03/29/19 09:00 Claritin PO DAILY [facility] Melatonin 3 mg 03/28/19 22:00 03/28/19 22:21 Melatonin PO 3 mg HS [facility] Administration Morphine Sulfate 4 mg 03/28/19 17:42 Morphine Sulfate (Inj) IV Q5M PRN Chest Pain Multivit/Ca Carb/B Cmplx/FA/Prenat 1 each 03/29/19 09:00 Nephrocaps PO DAILY [facility] Nitroglycerin 0.4 mg 03/28/19 17:42 Nitrostat SUBLINGUAL Q5M PRN Chest Pain Non-Formulary Medication 30 mg 03/28/19 21:49 Dextroamphetamine/Amphetamine [Adderall] PO DAILY PRN ADHD Intake and Output 03/28/19 03/29/19 03/29/19 22:59 06:59 14:59 Other: # Voids 1 1 03/28/19 14:29 03/28/19 14:29
--- NOTE | 2019-03-29 11:57 | ECHOF ---
Referral Reason:cp, dizziness MEASUREMENTS -------- HEIGHT: 175.3 cm WEIGHT: 57.6 kg BP: 87/49 RVIDd: 2.2 cm (< 3.3) IVSd: 0.8 cm (0.6 - 1.1) LVIDd: 4.0 cm (3.9 - 5.3) LVPWd: 1.0 cm (0.6 - 1.1) IVSs: 1.1 cm LVIDs: 2.8 cm LVPWs: 1.1 cm LA Diam: 2.3 cm (2.7 - 3.8) Ao Diam: 2.8 cm (2.0 - 3.7) AV Cusp: 1.8 cm (1.5 - 2.6) LA Diam: 2.5 cm (2.7 - 3.8) MV EXCURSION: 21.605 mm (> 18.000) MV EF SLOPE: 97 mm/s (70 - 150) EPSS: 0.4 cm MV E Jacob: 0.79 m/s MV DecT: 288 ms MV A Jacob: 0.56 m/s MV E/A Ratio: 1.42 RAP: 5.00 mmHg RVSP: 14.52 mmHg FINDINGS -------- Sinus rhythm. This was a technically good study. Pt. Has Breast inplants LV size, wall thickness and systolic function are normal, with an EF greater than 55%. The left jeana tricular size is normal. The right ventricle is normal in size. The left atrial size is normal. The right atrial size is normal. The aortic valve is trileaflet, and appears structurally normal. No aortic stenosis or regurgitation. Mild mitral annular calcification present. Mild mitral regurgitation is present. Mild tricuspid regurgitation present. Right ventricular systolic pressure is normal at < 35 mmHg. The pulmonic valve was not well visualized. The aortic root size is normal. There is no pericardial effusion. CONCLUSIONS -------- 1. Sinus rhythm. 2. This was a technically good study. 3. Pt. Has Breast inplants 4. LV size, wall thickness and systolic function are normal, with an EF greater than 55%. 5. The left ventricular size is normal. 6. The right ventricle is normal in size. 7. The left atrial size is normal. 8. The right atrial size is normal. 9. The aortic valve is trileaflet, and appears structurally normal. No aortic stenosis or regurgitati on. 10. Mild mitral annular calcification present. 11. Mild mitral regurgitation is present. 12. Mild tricuspid regurgitation present. 13. Right ventricular systolic pressure is normal at < 35 mmHg. 14. The pulmonic valve was not well visualized. 15. The aortic root size is normal. 16. There is no pericardial effusion. SENIOR PROJECT MANAGER: Flavia Cowan RDCS
[2019-03-29 13:27] VITALS: BP 101/66
--- NOTE | 2019-03-29 13:27 | ECHOS ---
STRESS ECHOCARDIOGRAM DATE OF SERVICE: 03/29/2019 INDICATIONS: Chest pain. MEDICATIONS: BASELINE HEART RATE: 69 BASELINE BLOOD PRESSURE: 104/72 MAXIMUM HEART RATE: 163 MAXIMUM BLOOD PRESSURE: 133/56 85% MPHR: 153 100% MPHR: 180 METS: 12.1 MAXIMUM STAGE REACHED: IV TOTAL EXERCISE TIME: 11 minutes CLINICAL INFORMATION: The patient was exercised for a total period of 11 minutes. The peak heart rate of 163 was achieved. Maximum blood pressure of 133/56 mmHg was noted. The resting EKG shows evidence of junctional rhythm with normal QRS complex and nonspecific ST-T changes. During exercise, no ST-segment depression suggestive of ischemia is noted. The baseline echocardiographic images reveals a normal left ventricular chamber size with normal left ventricular systolic function. In the immediate postexercise period, normal increase in the wall thickness and contractility is noted. FINAL IMPRESSION: 1. This stress echocardiographic study is negative for stress-induced ischemia. 2. EKG portion of the stress test is not suggestive of ischemia. 3. Patient's exercise tolerance is normal. MMODL / IJN: [id number] /
[2019-03-29 13:29] VITALS: PULSE 75; RESP 18; TEMP 97.4
--- NOTE | 2019-03-29 22:47 | P.HPIM ---
History of Present Illness H&P Date: 03/29/19 Chief Complaint: Right chest wall pain History of presenting complaint: This is a very pleasant 38-year-old patient who follows with Dr. Auguste. Has a very extensive medical history. That includes the following. Chronic stable medical conditions include fibromyalgia, rheumatoid arthritis, retinitis pigmentosa. Patient's rheumatoid arthritis was being followed by Dr. Álvarez and then she followed up at [facility]. She also has bilateral breast implants with complication of the same. She is following that with the breast specialist Dr. Noble Austin. Patient also could've autoimmune disorders. Patient also been diagnosed with apparently Lyme disease in the past. Does a questionable diagnosis of multiple sclerosis the past. She does follow with different physicians. Patient yesterday presented with sharp shooting stabbing pain on the right chest wall. Also bit on the left chest wall. Patient been felt flushed and hot. Also been having some pain in the left elbow. Generally passed out yesterday. Also broke out in a sweat. These symptoms are associated with a feeling of nearly passing out. Patient's mother is present with her. Review of systems: GEN.: Tired EYES: None HEENT: None NECK: None RESPIRATORY: As above CARDIOVASCULAR: As above GASTROINTESTINAL: None GENITOURINARY: Sometimes is had blood in the urine MUSCULOSKELETAL: As above LYMPHATICS: None HEMATOLOGICAL: None PSYCHIATRY: Anxious NEUROLOGICAL: None Past medical history to include: Fibromyalgia, rheumatoid arthritis, retinitis pigmentosa, possible lives, bilateral breast implant complications, autoimmune disorder, Social history: Does not smoke. Alcohol occasionally. Marijuana occasionally. Has 3 children at home. Physical examination: VITAL SIGNS: 97.3, 76, 18, 99/65, 100% room air GENERAL: BMI 18.8, sitting up on the bed. EYES: Pupils equal. Conjunctiva normal. HEENT: External appearance of nose and ears normal, oral cavity grossly normal. NECK: JVD not raised; masses not palpable. HEART: First and second heart sounds are normal; no edema. LUNGS: Respiratory rate normal; clear to auscultation. ABDOMEN: Soft, nontender, liver spleen not palpable, no masses palpable. PSYCH: Alert and oriented x3; mood and affect slightly anxiousl. NEUROLOGICAL: Cranial nerves grossly intact; no facial asymmetry, power and sensation grossly intact. LYMPHATICS: No lymph nodes palpable in the axilla and neck MUSCULAR skeletal: Reproducible pain at multiple levels of both rib cages laterally especially with moving and/twisting the body., Pain and tenderness also reproducible. Investigations: -White count 4-year-old woman 13.4 platelets 240 potassium 4.9. 22 creatinine 0.83 Troponin 3 negative LDL 71 EKG tracing personally reviewed by me-normal sinus rhythm, low voltage Chest x-ray film personally reviewed by me-lung varma are clear Assessment: -This is a patient who presents with a multitude of systemic symptoms including bilateral rib wall/cage pain which is also reproducible. This is most likely musculoskeletal pain possibly manifestation daughter with disorder she has. Could be related to the rapid change in temperature/weather yesterday. Need to rule out a cardiac cause. -Chronic fibromyalgia -Chronic rheumatoid arthritis -Retinitis pigmentosa -Autoimmune disorder type unknown Plan: Cardiology was consulted. Stress test was ordered. Home medications were renewed. Care is was discussed with the patient detailed and the mother. Patient should follow up with her appointments. Patient does not seem to have any other acute infectious problem right now does not fever no white count. And patient does feel overall much better since her presentation. Past Medical History Past Medical History: Fibromyalgia, Rheumatoid Arthritis (RA), Thyroid Disorder Additional Past Medical History / Comment(s): retinitis pigmentosa, autoimmune retinopathy, lyme disease,eye disease, POTS, MTHFR- blood clot disorder, cerebral aneurysms, herniated disc of neck, fluid to left side of her chest. lesion 4mm on left temporal lobe History of Any Multi-Drug Resistant Organisms: None Reported Past Surgical History: Breast Surgery, Cholecystectomy, Hysterectomy, Orthopedic Surgery Additional Past Surgical History / Comment(s): carpal tunnel repair, nose deviated septum and broken, endometriosis, foot, 3 colonoscopy, two bladder sugeries, nose, throat and 4 shoulder surgeries. bilat breast implants 2001. Left overie is only thing left Past Anesthesia/Blood Transfusion Reactions: Postoperative Nausea & Vomiting (PONV) Smoking Status: Never smoker - Past Family History Mother Additional Family Medical History / Comment(s): strong maternal hx of breast cancer. patient's maternal grandmother and many great aunts/cousins have had a breast cancer Father Additional Family Medical History / Comment(s): several of patient's fathers' aunts and first cousins have been dx with breast cancer (some of from this) Medications and Allergies Home Medications Medication Instructions Recorded Confirmed Type Atenolol 25 mg PO DAILY 12/23/15 03/28/19 History Budesonide-Formot 160-4.5 Mcg 2 puff INHALATION RT-BID 08/19/18 03/28/19 History [Symbicort 160-4.5 Mcg Inhaler] Dextroamphetamine/Amphetamine 15 - 30 mg PO DAILY PRN 08/19/18 03/28/19 History [Adderall] Vitamin B Complex 1 cap PO DAILY 08/26/18 03/28/19 History Cholecalciferol [Vitamin D3 (25 5,000 unit PO DAILY 03/23/19 03/28/19 History Mcg = 1000 Iu)] Cetirizine HCl 10 mg PO DAILY 03/28/19 03/28/19 History Melatonin (Unknown Strength) 1 tab PO HS PRN 03/28/19 03/28/19 History Ranitidine HCl 150 mg PO HS 03/28/19 03/28/19 History Allergies Allergy/AdvReac Type Severity Reaction Status Date / Time medroxyprogesterone acetate Allergy Rash/Hives Verified 03/28/19 21:01 [From Depo-Provera] protamine AdvReac Rash/Hives Verified 03/28/19 21:01 Sulfa (Sulfonamide AdvReac Swelling Verified 03/28/19 21:01 Antibiotics) Physical Exam Vitals: Vital Signs Temp Pulse Pulse Resp BP BP Pulse Ox 03/29/19 08:00 98.4 F 60 17 87/49 98 03/29/19 04:00 98.5 F 56 L 18 96/57 97 03/29/19 03:50 18 03/29/19 00:00 98.3 F 67 18 93/53 98 03/28/19 21:13 98.3 F 66 18 105/66 100 03/28/19 16:14 67 16 97/61 99 03/28/19 14:30 64 18 95/78 100 03/28/19 14:00 72 18 100/75 100 03/28/19 13:52 100 03/28/19 13:43 97.3 F L 76 18 99/65 100 Intake and Output 03/28/19 03/29/19 03/29/19 22:59 06:59 14:59 Other: Voiding Method Toilet # Voids 1 1 Results CBC & Chem 7: 03/28/19 14:29 03/28/19 14:29 Labs: Abnormal Lab Results - Last 24 Hours (Table) 03/28/19 Range/Units 14:29 BUN 22 H (7-17) mg/dL Total Bilirubin 0.1 L (0.2-1.3) mg/dL
--- NOTE | 2019-03-29 22:50 | P.DS ---
Providers Date of admission: 03/28/19 17:41 Expected date of discharge: 03/29/19 Attending physician: Benigno Tolentino Consults: 03/28/19 17:42 Consult Physician Urgent Consulting Provider: Darian Chino Consult Reason/Comments: dizziness, chest pain Do you want consulting provider notified?: Yes Primary care physician: Alex Auguste [facility] Course: Chief Complaint: Right chest wall pain Hospital course: This is a very pleasant 38-year-old patient who follows with Dr. Auguste. Has a very extensive medical history. That includes the following. Chronic stable medical conditions include fibromyalgia, rheumatoid arthritis, retinitis pigmentosa. Patient's rheumatoid arthritis was being followed by Dr. Álvarez and then she followed up at [facility]. She also has bilateral breast implants with complication of the same. She is following that with the breast specialist Dr. Noble Austin. Patient also could've autoimmune disorders. Patient also been diagnosed with apparently Lyme disease in the past. Does a questionable diagnosis of multiple sclerosis the past. She does follow with different physicians. Patient yesterday presented with sharp shooting stabbing pain on the right chest wall. Also bit on the left chest wall. Patient been felt flushed and hot. Also been having some pain in the left elbow. Generally passed out yesterday. Also broke out in a sweat. These symptoms are associated with a feeling of nearly passing out. Patient's mother is present with her. Symptoms are felt to be more systemic musculoskeletal a change in weather given her underlying autoimmune disorders. Stress test was negative. Care was discussed at length with the patient and mother. Questions were answered. No white count or fever. She was told to follow with her appointments. Physical examination: VITAL SIGNS: 97.3, 76, 18, 99/65, 100% room air GENERAL: BMI 18.8, sitting up on the bed. EYES: Pupils equal. Conjunctiva normal. HEENT: External appearance of nose and ears normal, oral cavity grossly normal. NECK: JVD not raised; masses not palpable. HEART: First and second heart sounds are normal; no edema. LUNGS: Respiratory rate normal; clear to auscultation. ABDOMEN: Soft, nontender, liver spleen not palpable, no masses palpable. PSYCH: Alert and oriented x3; mood and affect slightly anxiousl. NEUROLOGICAL: Cranial nerves grossly intact; no facial asymmetry, power and sensation grossly intact. LYMPHATICS: No lymph nodes palpable in the axilla and neck MUSCULAR skeletal: Reproducible pain at multiple levels of both rib cages laterally especially with moving and/twisting the body., Pain and tenderness also reproducible. Investigations: -White count 4-year-old woman 13.4 platelets 240 potassium 4.9. 22 creatinine 0.83 Troponin 3 negative LDL 71 EKG tracing personally reviewed by me-normal sinus rhythm, low voltage Chest x-ray film personally reviewed by me-lung varma are clear Discharge diagnosis: -Bilateral chest wall pain felt to be musculoskeletal -Chronic fibromyalgia -Chronic rheumatoid arthritis -Retinitis pigmentosa -Autoimmune disorder type unknown Disposition: Home Patient Condition at Discharge: Stable Plan - Discharge Summary New Discharge Prescriptions: Continue Atenolol 25 mg PO DAILY Dextroamphetamine/Amphetamine [Adderall] 15 - 30 mg PO DAILY PRN PRN Reason: ADHD Budesonide-Formot 160-4.5 Mcg [Symbicort 160-4.5 Mcg Inhaler] 2 puff INHALATION RT-BID Vitamin B Complex 1 cap PO DAILY Cholecalciferol [Vitamin D3 (25 Mcg = 1000 Iu)] 5,000 unit PO DAILY Melatonin (Unknown Strength) 1 tab PO HS PRN PRN Reason: SLEEP Cetirizine HCl 10 mg PO DAILY Ranitidine HCl 150 mg PO HS Discharge Medication List Atenolol 25 mg PO DAILY 12/23/15 [History] Budesonide-Formot 160-4.5 Mcg [Symbicort 160-4.5 Mcg Inhaler] 2 puff INHALATION RT-BID 08/19/18 [History] Dextroamphetamine/Amphetamine [Adderall] 15 - 30 mg PO DAILY PRN 08/19/18 [History] Vitamin B Complex 1 cap PO DAILY 08/26/18 [History] Cholecalciferol [Vitamin D3 (25 Mcg = 1000 Iu)] 5,000 unit PO DAILY 03/23/19 [History] Cetirizine HCl 10 mg PO DAILY 03/28/19 [History] Melatonin (Unknown Strength) 1 tab PO HS PRN 03/28/19 [History] Ranitidine HCl 150 mg PO HS 03/28/19 [History] Follow up Appointment(s)/Referral(s): Alex Auguste MD [Primary Care Provider] - 1-2 days Brett Hogan MD [STAFF PHYSICIAN] - 1 Week Patient Instructions/Handouts: Chest Pain (GEN)
== END 2019-03-29 16:02 ==
LOC: EC 13:32 → 1SOBS 17:41
PROVIDERS: ADMIT Hospitalist; ATTEND Hospitalist
DX: R07.89 Other chest pain (principal); R42 Dizziness and giddiness; R61 Generalized hyperhidrosis; I95.9 Hypotension, unspecified; M79.7 Fibromyalgia; M06.9 Rheumatoid arthritis, unspecified; E07.9 Disorder of thyroid, unspecified; H35.52 Pigmentary retinal dystrophy; H35.00 Unspecified background retinopathy; I49.8 Other specified cardiac arrhythmias; E72.12 Methylenetetrahydrofolate reductase deficiency; I67.1 Cerebral aneurysm, nonruptured; M50.20 Other cervical disc displacement, unspecified cervical region; F90.9 Attention-deficit hyperactivity disorder, unspecified type; F41.9 Anxiety disorder, unspecified; F32.9 Major depressive disorder, single episode, unspecified; M25.522 Pain in left elbow; D89.89 Other specified disorders involving the immune mechanism, not elsewhere classified; Z79.51 Long term (current) use of inhaled steroids; Z79.899 Other long term (current) drug therapy; Z88.2 Allergy status to sulfonamides; Z88.8 Allergy status to other drugs, medicaments and biological substances; T85.9XXA Unspecified complication of internal prosthetic device, implant and graft, initial encounter; Z86.19 Personal history of other infectious and parasitic diseases; Z90.49 Acquired absence of other specified parts of digestive tract; Z98.82 Breast implant status; Z87.891 Personal history of nicotine dependence; Z90.710 Acquired absence of both cervix and uterus; Z80.3 Family history of malignant neoplasm of breast
CPT/HCPCS: 96360; 96361; 99285; 36415; 93005; 93306; 93351; 85379; 83880; 80061; 80053; 83735; 84484 ×2; 85025; 85610; 85730; 71046; G0378 ×2

== ENCOUNTER → 2019-04-18 | Day surgery (SDC) | payer OTHER ==
[2019-04-18 12:09] VITALS: BP 88/50; PULSE 101; TEMP 97.9; BMI 18.7
--- NOTE | 2019-04-18 13:51 | USB ---
US Discontinued Breast Asp LT Left complete breast ultrasound includes all four quadrants, the retroareolar region and axilla. Finding demonstrates 3mm fluid collection at 12 o'clock, stable from 1 month ago, appears as reactive nas-implant fluid, too small for diagnostic aspiration after discussion with pathology (need 5 or more CC of fluid) 3 month precautionary ultrasound will be performed. Discussed with the patient. RECOMMENDATION: Ultrasound of the left breast in 3 months.
== END ==
LOC: RADUSWWP 11:21
PROVIDERS: ATTEND Surgery
DX: R92.8 Other abnormal and inconclusive findings on diagnostic imaging of breast (principal); Z53.8 Procedure and treatment not carried out for other reasons; Z98.82 Breast implant status

== ENCOUNTER → 2019-04-18 | Outpatient (CLI) | payer OTHER ==
[2019-04-18 11:09] LABS: Basophils % (A) 1 %; Eosinophils % (A) 1 %; HCT 42.6 % (34.0-46.0); HGB 13.7 gm/dL (11.4-16.0); Lymphocytes # (A) 1.3 k/uL (1.0-4.8); Lymphocytes % (A) 32 %; MCH 30.2 pg (25.0-35.0); MCHC 32.2 g/dL (31.0-37.0); Mean Platelet Volume 5.7; Monocytes # (A) 0.2 k/uL (0-1.0); Monocytes % (A) 4 %; Neutrophils # (A) 2.3 k/uL (1.3-7.7); Neutrophils % (A) 59 %; Platelet Count 258 k/uL (150-450); RBC 4.55 m/uL (3.80-5.40); RDW 12.1 % (11.5-15.5); WBC 3.9 k/uL (3.8-10.6)
[2019-04-18 11:19] LABS: MCV 93.7 fL (80.0-100.0)
[2019-04-18 19:07] LABS: African American GFR (CKD) 92.7 (60.0-200.0); Albumin 4.8 g/dL (3.80-4.90); Albumin/Globulin Ratio 2.29 (1.60-3.17); BUN/Creat Ratio 18.89 Ratio (12.00-20.00); Calcium 9.7 mg/dL (8.7-10.3); Chol/HDL Ratio 2.66; Globulin 2.1 g/dL (1.6-3.3); LDL Cholesterol,Calculated 95.4 mg/dL (0.0-131.0); Potassium 4.7 mmol/L (3.5-5.5); Total Bilirubin 0.6 mg/dL (0.3-1.2); Total Protein 6.9 g/dL (6.2-8.2); VLDL Calculation 10.6 mg/dL (5.00-40.00)
== END | disposition home or self-care (01) ==
LOC: LABWHC1 10:27
PROVIDERS: ATTEND Family Medicine
DX: R10.9 Unspecified abdominal pain (principal)
CPT/HCPCS: 36415; 80053; 80061; 82306; 82607; 85025

== ENCOUNTER → 2019-04-28 | Outpatient (CLI) | payer OTHER ==
--- NOTE | 2019-04-30 01:29 | MR ---
EXAMINATION TYPE: MR abdomen wo/w con DATE OF EXAM: 04/28/2019 COMPARISON: None HISTORY: Generalized abdominal pain CONTRAST: Standard multiplanar, multisequence MRI departmental protocol utilizing 6 mL intravenous gadolinium c ontrast. FINDINGS: Stomach appears large. Spleen is intact. Liver shows no focal defect. The bile ducts are no t dilated. There is 2.6 cm rounded cystic fluid collection in the left lobe of the liver consistent w ith simple cyst. There is no evidence of a pancreatic mass. Pancreatic duct is not dilated. Bile duct s are not dilated. There is small right pleural effusion. Gallbladder appears absent. There is no evidence of adrenal mass. Kidneys show normal size and contour. There is no hydronephrosi s. There is no sign of retroperitoneal adenopathy. There is no sign of ascites. I see no pathologic e nhancement. Heart size appears normal. There is no sign of pericardial effusion. There are bilateral breast implants. IMPRESSION: There is small cyst in the left lobe of the liver. No dilated ducts. No evidence of solid liver mass. Small right pleural effusion.
== END | disposition home or self-care (01) ==
LOC: RADMRIMAIN 19:32
PROVIDERS: ATTEND Internal Medicine Critical Care Medicine
DX: K76.89 Other specified diseases of liver (principal)
CPT/HCPCS: 74183; A9585

== ENCOUNTER → 2019-08-03 | Outpatient (CLI) | payer OTHER ==
[2019-08-03 11:21] LABS: Basophils % (A) 0 %; Eosinophils # (A) 0.1 k/uL (0-0.7); Eosinophils % (A) 1 %; HCT 41.2 % (34.0-46.0); HGB 13.6 gm/dL (11.4-16.0); Lymphocytes # (A) 1.3 k/uL (1.0-4.8); Lymphocytes % (A) 22 %; MCH 30.2 pg (25.0-35.0); MCV 91.4 fL (80.0-100.0); Mean Platelet Volume 7.5; Monocytes # (A) 0.2 k/uL (0-1.0); Monocytes % (A) 3 %; Neutrophils # (A) 4.1 k/uL (1.3-7.7); Neutrophils % (A) 71 %; Platelet Count 264 k/uL (150-450); RDW 12.1 % (11.5-15.5); WBC 5.7 k/uL (3.8-10.6)
[2019-08-03 16:12] LABS: African American GFR (CKD) 106.9 (60.0-200.0); Albumin 4.5 g/dL (3.80-4.90); Albumin/Globulin Ratio 2.37 (1.60-3.17); Anion Gap 6.8 mmol/L (4.00-12.00); BUN/Creat Ratio 17.5 Ratio (12.00-20.00); Carbon Dioxide 26.2 mmol/L (21.6-31.8); Chol/HDL Ratio 2.34; Globulin 1.9 g/dL (1.6-3.3); Non-African American GFR(CKD) 92.2 (60.0-200.0); Potassium 4.5 mmol/L (3.5-5.5); Total Bilirubin 0.4 mg/dL (0.3-1.2); Total Protein 6.4 g/dL (6.2-8.2)
[2019-08-03 16:19] LABS: T4, Free (Free Thyroxine) 1.1 ng/dL (0.80-1.80)
== END | disposition home or self-care (01) ==
LOC: LABWHC1 10:18
PROVIDERS: ATTEND Family Medicine
DX: Z00.00 Encounter for general adult medical examination without abnormal findings (principal)
CPT/HCPCS: 36415; 80053; 80061; 82306; 84439; 84443; 84481; 85025

== ENCOUNTER → 2020-02-07 | Outpatient (CLI) | payer OTHER ==
[2020-02-07 14:41] LABS: HCT 39.3 % (34.0-46.0); HGB 12.5 gm/dL (11.4-16.0); MCHC 31.9 g/dL (31.0-37.0); MCV 94.1 fL (80.0-100.0); Mean Platelet Volume 7.7; Platelet Count 216 k/uL (150-450); RBC 4.18 m/uL (3.80-5.40); RDW 12.7 % (11.5-15.5); WBC 4.4 k/uL (3.8-10.6)
[2020-02-07 20:06] LABS: African American GFR (CKD) 106.1 (60.0-200.0); Albumin 4.6 g/dL (3.80-4.90); Albumin/Globulin Ratio 2.3 (1.60-3.17); Anion Gap 11.4 mmol/L (4.00-12.00); BUN/Creat Ratio 23.75 Ratio (12.00-20.00); Calcium 9.3 mg/dL (8.7-10.3); Carbon Dioxide 21.6 mmol/L (21.6-31.8); Non-African American GFR(CKD) 91.6 (60.0-200.0); Potassium 3.9 mmol/L (3.5-5.5); Total Bilirubin 0.7 mg/dL (0.3-1.2); Total Protein 6.6 g/dL (6.2-8.2)
[2020-02-07 20:41] LABS: Folate, Serum 21.8 ng/mL
[2020-02-07 21:09] LABS: Anti-Smith Ab Interp NEGATIVE (NEGATIVE); Cyclic Citrull Pep IgG Unit 0.7 U/mL; Cyclic Citrullinated Pep IgG NEGATIVE (NEGATIVE); DNA Double-Stranded NEGATIVE (NEGATIVE); JO-1 IgG Antibody <0.2 AI; Scleroderma SC-70 Ab <0.2 AI
== END | disposition home or self-care (01) ==
LOC: LABWHC1 13:06
PROVIDERS: ATTEND Nurse Practitioner Family
DX: M25.50 Pain in unspecified joint (principal); E55.9 Vitamin D deficiency, unspecified
CPT/HCPCS: 36415; 80053; 82306; 82607; 82746; 83090; 83516; 84439; 84443; 84481; 85027; 86038; 86200; 86225; 86235

== ENCOUNTER → 2020-03-06 | Outpatient (CLI) | payer OTHER ==
--- NOTE | 2020-03-06 16:55 | MR ---
EXAMINATION TYPE: MR brain wo/w con DATE OF EXAM: 03/06/2020 COMPARISON: MRI brain March 24, 2019. HISTORY: Vision loss, headaches, dizziness and giddiness, tinnitus. TECHNIQUE: Multiplanar, multisequence images of the brain and brainstem is performed without and with IV contras t, utilizing 6 mL intravenous Gadavist . FINDINGS: Diffusion weighted images demonstrate no evidence of a recent infarct or other diffusion ab normality. There is no extra-axial fluid collection or new significant white matter signal abnormali ty. Stable 4 mm posterior superior left temporal deep white matter lesion axial image 15. The ventri cular system and cisternal spaces are normal in size and appearance. The brain volume is age appropr iate. T2 star weighted images show no suspicious intraparenchymal blood products. Midline structures demonstrate normal morphology. The craniocervical junction appears within normal limits. Post contrast images demonstrate no abnormal enhancement. The dural venous sinuses appear pa tent. The visualized sinuses are clear. Some distortion anteriorly at level of globes on current stud y noted. No suspicious fluid signal bilateral mastoid air cells. IMPRESSION: No suspicious new or acute findings.
== END | disposition home or self-care (01) ==
LOC: RADMRIMAIN 14:50
PROVIDERS: ATTEND Nurse Practitioner Family
DX: R51 Headache (principal); R42 Dizziness and giddiness; M54.5 Low back pain; M54.16 Radiculopathy, lumbar region; M54.2 Cervicalgia; R41.3 Other amnesia
CPT/HCPCS: 70553; A9585

== ENCOUNTER → 2020-03-07 | Outpatient (CLI) | payer OTHER ==
--- NOTE | 2020-03-08 03:08 | MR ---
EXAMINATION TYPE: MR lumbar spine wo con DATE OF EXAM: 03/07/2020 COMPARISON: None HISTORY: Low back pain, radiculopathy, lumbar Multiplanar multiecho imaging of the lumbar spine was performed without contrast. Lumbar vertebra have normal alignment. Disc spaces are fairly normal. Posterior elements are intact. There is developmentally large spinal canal. The neural foramina are widely patent. There is no lumba r compression fracture. Lumbar nerve roots appear normal. The sacroiliac joints appear intact. There is no lumbar paraspinal mass. IMPRESSION: Normal MR scan of the lumbar spine.
== END | disposition home or self-care (01) ==
LOC: RADMRIMAIN 15:01
PROVIDERS: ATTEND Nurse Practitioner Family
DX: M54.5 Low back pain (principal); M54.2 Cervicalgia; R51 Headache; R42 Dizziness and giddiness; R41.3 Other amnesia; R20.2 Paresthesia of skin
CPT/HCPCS: 72148

== ENCOUNTER → 2020-03-07 | Outpatient (CLI) | payer OTHER ==
--- NOTE | 2020-03-08 03:07 | MR ---
EXAMINATION TYPE: MR cervical spine wo con DATE OF EXAM: 03/07/2020 COMPARISON: None HISTORY: Neck pain, headaches, BUE radiculopathy There is some mild straightening of the vertebra. There is disc space narrowing from C3 to C6 with so me spurring of the endplates. Cervical spinal cord has normal signal pattern. There is no edema. Ther e is mild posterior disc bulging from C3 to C6. Spinal canal measures 9 mm at C3-4. Canal measures 8 mm at C5-6. There is no significant spinal stenosis. Brainstem appears intact. I see no bony destruct alona process. There is no cervical paraspinal mass. IMPRESSION: Multilevel spondylotic changes with straightening of the spine. No significant spinal stenosis. No fr acture.
== END | disposition home or self-care (01) ==
LOC: RADMRIMAIN 14:56
PROVIDERS: ATTEND Nurse Practitioner Family
DX: M47.22 Other spondylosis with radiculopathy, cervical region (principal); M53.82 Other specified dorsopathies, cervical region
CPT/HCPCS: 72141

== ENCOUNTER → 2020-04-01 | Outpatient (CLI) | payer OTHER ==
--- NOTE | 2020-04-01 13:04 | MR ---
EXAMINATION TYPE: MR angio head wo/neck wo/w con DATE OF EXAM: 04/01/2020 COMPARISON: 03/24/2019 HISTORY: Dizziness, Headaches, Genetic vision disorder TECHNIQUE: Utilizing 3-D [id number] intracranial MRA of the [place] of [place] was performed. FINDINGS: The vertebrobasilar and carotid systems are patent. There is 2.5 mm of protuberance extending off th e posterior communicating region of the right internal carotid artery suspicious for tiny aneurysm. Carotid bifurcations are patent bilaterally. There is no significant stenosis. Vertebral arteries are patent and symmetric. IMPRESSION: 1. 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 2. No significant stenosis involving the carotid bifurcations.
== END | disposition home or self-care (01) ==
LOC: RADMRIMAIN 11:50
PROVIDERS: ATTEND Nurse Practitioner Family
DX: M54.5 Low back pain (principal); M54.2 Cervicalgia; R51.9 Headache, unspecified; M54.16 Radiculopathy, lumbar region; R42 Dizziness and giddiness; R41.3 Other amnesia; R20.2 Paresthesia of skin
CPT/HCPCS: 70544; 70549; A9585

== ENCOUNTER → 2020-04-18 | Outpatient (CLI) | payer OTHER ==
--- NOTE | 2020-04-18 21:01 | CT ---
EXAMINATION TYPE: CT abdomen pelvis w con DATE OF EXAM: 04/18/2020 COMPARISON: Prior CT 11/21/2015 HISTORY: Abdominal/back pain, history of kidney stones. CT DLP: 367.7 mGycm Automated exposure control for dose reduction was used. TECHNIQUE: Helical acquisition of images from the lung bases through the pelvis have been completed. CONTRAST: Performed with Oral Contrast and with IV Contrast, patient injected with 100ml mL of Isovue 300. FINDINGS: Breast prostheses are noted. LUNG BASES: No significant abnormality is appreciated. Posterior diaphragmatic hernia on the right co ntains fat AORTA: No significant abnormality is appreciated. LIVER/GB: No significant abnormality is appreciated within the liver, gallbladder is surgically absen t, there is mild prominence of biliary ducts likely due to postcholecystectomy change. PANCREAS: No significant abnormality is seen. SPLEEN: No significant abnormality is seen. ADRENALS: No significant abnormality is seen. KIDNEYS: Punctate calcification associated with the lower pole the right kidney, mild pelvic caliecta sis bilaterally again noted. REPRODUCTIVE ORGANS: The left ovary shows associated cystic foci similar to prior, uterus is absent, right ovary not seen BOWEL: Thickening of the descending colon wall could be due to lack of distention, difficult to excl ude mucosal lesion, colitis. Appendix not seen FREE AIR: No Free Air visible. ASCITES: None visible. PELVIC ADENOPATHY: None visualized. RETROPERITONEAL ADENOPATHY: No Retroperitoneal Adenopathy visible. URINARY BLADDER: No significant abnormality is seen. OSSEOUS STRUCTURES: No significant abnormality is seen. IMPRESSION: CORRELATE TO EXCLUDE COLITIS. Multilocular cystic change associated with the left ovary. Postop medley es. Nonobstructive right nephrolithiasis.
== END | disposition home or self-care (01) ==
LOC: RADCTMAIN 17:32
PROVIDERS: ATTEND Internal Medicine Hematology & Oncology
DX: D39.12 Neoplasm of uncertain behavior of left ovary (principal); N20.0 Calculus of kidney; Z98.890 Other specified postprocedural states; Z88.2 Allergy status to sulfonamides; Z88.8 Allergy status to other drugs, medicaments and biological substances
CPT/HCPCS: 74177; Q9967

== ENCOUNTER → 2020-05-03 | Outpatient (CLI) | payer OTHER | END | disposition home or self-care (01) | LOC: LABWHC1 16:42 | PROVIDERS: ATTEND Internal Medicine Critical Care Medicine | DX: R05 Cough (principal); R06.02 Shortness of breath; R50.9 Fever, unspecified | CPT/HCPCS: U0003; C9803 ==

== ENCOUNTER → 2020-05-08 | Outpatient (CLI) | payer OTHER ==
--- NOTE | 2020-05-09 11:30 | MM ---
Reason for exam: screening (asymptomatic). Last mammogram was performed 1 year and 8 months ago. History: Family history of breast cancer in maternal grandmother at age 70, breast cancer in maternal aunt, and breast cancer in cousin at age 40. Implants in both breasts, January 03, 2020. Benign US breast needle core RT of the right breast, August 31, 2018. Implants in both breasts, 2001. Physical Findings: A clinical breast exam by your physician is recommended on an annual basis and results should be correlated with mammographic findings. MG Screening Mammo Implant/CAD Bilateral CC, MLO, and ID view(s) were taken. Prior study comparison: August 31, 2018, right breast MG diagnostic mammo RT wo CAD. December 03, 2015, bilateral MG screening mammo implant/CAD. The breast tissue is heterogeneously dense. This may lower the sensitivity of mammography. No significant changes when compared with prior studies. ASSESSMENT: Benign, BI-RAD 2 RECOMMENDATION: Routine screening mammogram of both breasts in 1 year.
== END | disposition home or self-care (01) ==
LOC: RADMAMWWP 08:36
PROVIDERS: ATTEND Internal Medicine Hematology & Oncology
DX: Z12.31 Encounter for screening mammogram for malignant neoplasm of breast (principal)
CPT/HCPCS: 77067

== ENCOUNTER 2020-07-16 08:27 | Day surgery (SDC) | payer OTHER ==
[2020-07-11 10:44] VITALS: BMI 19.6
[~2020-07-16 08:27] MED LIST: LACTATED RINGERS 1,000 ML IV SCH; LIDOCAINE 1% (10MG/ML) FOR IV START INTRADERMA PRN; MIDAZOLAM 2 MG/2 ML VIAL IV PRN
[2020-07-16 09:12] VITALS: RESP 16; TEMP 98.1
[2020-07-16] MEDS ORDERED: ONDANSETRON 4 MG/2 ML VIAL ONE (09:15)
[2020-07-16] MEDS ORDERED: ONDANSETRON 4 MG/2 ML VIAL IVP ONE (09:17)
[2020-07-16] MEDS ORDERED: PROPOFOL 10 MG/ML 20 ML VIAL IV ONE (09:41)
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
--- NOTE | 2020-07-16 10:09 | P.OP ---
Date of Procedure: 07/16/20 Procedure(s) Performed: PREOPERATIVE DIAGNOSIS: Anemia, rectal bleeding, nausea, GERD POSTOPERATIVE DIAGNOSIS: Gastritis, small hiatal hernia, normal appearing colon PROCEDURE: 1. EGD with biopsy 2. Colonoscopy ANESTHESIA: MAC SURGEON: Domingo Cali M.D. SPECIMENS: Antrum ENDOSCOPIC PROCEDURE: The patient was on the endoscopy table in the left decubitus position. The Olympus gastroscope was inserted into the oropharynx and passed under direct visualization to the region of the third portion of the duodenum. From that point the scope was slowly withdrawn inspecting all surfaces carefully. There were no neoplastic inflammatory or polypoid lesions throughout the duodenum. The pylorus was widely patent. The stomach was carefully inspected. There was mild gastritis present. A biopsy of the antrum took place to rule out H. pylori. Retroflexion revealed a small sliding hiatal hernia. The esophagus was then carefully examined. There were no neoplastic inflammatory or polypoid lesions throughout the visualized esophagus. The patient was kept on the endoscopy table in the left decubitus position. The Olympus colonoscope was inserted into the anus and passed under direct visualization to the base of the cecum. The appendiceal orifice was visualized. From that point the scope was slowly withdrawn inspecting all surfaces carefully. There were no neoplastic inflammatory or polypoid lesions throughout the cecum, ascending, transverse, descending, sigmoid and rectum. There was no visible diverticulosis noted. Digital rectal examination was normal. The patient was taken to the recovery room in stable condition per anesthesia guidelines. RECOMMENDATIONS: Resume diet. Continue anemia workup. As needed antiacid therapy.
[2020-07-16 10:38] VITALS: BP 99/69; PULSE 51
== END 2020-07-16 11:01 | disposition home or self-care (01) ==
LOC: ORWHC2ENDO 08:27
PROVIDERS: ATTEND Surgery
DX: K62.5 Hemorrhage of anus and rectum (principal); K29.50 Unspecified chronic gastritis without bleeding; K44.9 Diaphragmatic hernia without obstruction or gangrene; K21.9 Gastro-esophageal reflux disease without esophagitis; D50.9 Iron deficiency anemia, unspecified; Z88.2 Allergy status to sulfonamides; Z91.048 Other nonmedicinal substance allergy status; Z88.8 Allergy status to other drugs, medicaments and biological substances; Z87.891 Personal history of nicotine dependence; Z86.73 Personal history of transient ischemic attack (TIA), and cerebral infarction without residual deficits; F41.9 Anxiety disorder, unspecified; F32.9 Major depressive disorder, single episode, unspecified; F90.9 Attention-deficit hyperactivity disorder, unspecified type; Z79.51 Long term (current) use of inhaled steroids; Z90.710 Acquired absence of both cervix and uterus; Z79.899 Other long term (current) drug therapy; M79.7 Fibromyalgia; I49.8 Other specified cardiac arrhythmias; H35.52 Pigmentary retinal dystrophy; M06.9 Rheumatoid arthritis, unspecified; H35.00 Unspecified background retinopathy; A69.20 Lyme disease, unspecified; G43.909 Migraine, unspecified, not intractable, without status migrainosus; Z90.49 Acquired absence of other specified parts of digestive tract; Z98.890 Other specified postprocedural states; Z80.3 Family history of malignant neoplasm of breast; Z90.721 Acquired absence of ovaries, unilateral; Z79.1 Long term (current) use of non-steroidal anti-inflammatories (NSAID)
CPT/HCPCS: 88305; 45378; 43239; J2405; J2704

== ENCOUNTER → 2020-08-02 | Outpatient (CLI) | payer OTHER ==
[2020-08-03 00:23] LABS: African American GFR (CKD) 106.1 (60.0-200.0); Anion Gap 10.8 mmol/L (4.00-12.00); Calcium 9.8 mg/dL (8.7-10.3); Carbon Dioxide 27.2 mmol/L (21.6-31.8); Non-African American GFR(CKD) 91.6 (60.0-200.0); Potassium 3.9 mmol/L (3.5-5.5)
[2020-08-03 00:31] LABS: T4, Free (Free Thyroxine) 0.9 ng/dL (0.80-1.80)
== END | disposition home or self-care (01) ==
LOC: LABWHC1 14:13
PROVIDERS: ATTEND Internal Medicine
DX: E05.90 Thyrotoxicosis, unspecified without thyrotoxic crisis or storm (principal)
CPT/HCPCS: 36415; 80048; 84439; 84443

== ENCOUNTER 2021-03-06 12:53 | Emergency (ER) | payer OTHER ==
[2021-03-06 13:19] VITALS: BP 115/77; PULSE 97; RESP 20; TEMP 98.2
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
== END 2021-03-06 14:43 | disposition home or self-care (01) ==
LOC: EC 12:53
DX: T18.9XXA Foreign body of alimentary tract, part unspecified, initial encounter (principal); M79.7 Fibromyalgia; H54.7 Unspecified visual loss; Z86.73 Personal history of transient ischemic attack (TIA), and cerebral infarction without residual deficits; Z79.899 Other long term (current) drug therapy; Z87.891 Personal history of nicotine dependence; Z90.49 Acquired absence of other specified parts of digestive tract; Z88.2 Allergy status to sulfonamides; Z88.8 Allergy status to other drugs, medicaments and biological substances; Z91.09 Other allergy status, other than to drugs and biological substances; W45.8XXA Other foreign body or object entering through skin, initial encounter
CPT/HCPCS: 99283

== ENCOUNTER → 2021-06-20 | Outpatient (CLI) | payer OTHER ==
--- NOTE | 2021-06-23 14:46 | MM ---
Reason for exam: screening (asymptomatic). Last mammogram was performed 1 year and 1 month ago. History: Family history of breast cancer in maternal grandmother at age 70, breast cancer in maternal aunt, and breast cancer in cousin at age 40. Implants in both breasts, January 03, 2020. Benign US breast needle core RT of the right breast, August 31, 2018. Implants in both breasts, 2001. Physical Findings: A clinical breast exam by your physician is recommended on an annual basis and results should be correlated with mammographic findings. MG Screening Mammo Implant/CAD Bilateral CC, MLO, and ID view(s) were taken. Prior study comparison: May 08, 2020, bilateral MG screening mammo implant/CAD. August 31, 2018, right breast MG diagnostic mammo RT wo CAD. The breast tissue is heterogeneously dense. This may lower the sensitivity of mammography. Previous mammotome biopsy in the right breast. Bilateral breast prothesis. No significant changes when compared with prior studies. ASSESSMENT: Benign, BI-RAD 2 RECOMMENDATION: Routine screening mammogram of both breasts in 1 year.
== END | disposition home or self-care (01) ==
LOC: RADMAMWWP 09:27
PROVIDERS: ATTEND Family Medicine
DX: Z12.31 Encounter for screening mammogram for malignant neoplasm of breast (principal)
CPT/HCPCS: 77067

== ENCOUNTER → 2021-11-21 | Outpatient (CLI) | payer OTHER ==
[2021-11-21 14:33] LABS: Basophils # (A) 0.04 X 10*3/uL (0.00-0.10); Basophils % (A) 0.6 %; Eosinophils # (A) 0.07 X 10*3/uL (0.04-0.35); Eosinophils % (A) 1.1 %; HCT 39.8 % (37.2-46.3); HGB 12.7 g/dL (12.0-15.0); Immature Grans, Automated 0.3 %; Lymphocytes # (A) 1.46 X 10*3/uL (0.90-5.00); MCH 29.8 pg (27.0-32.0); MCHC 31.9 g/dL (32.0-37.0); MCV 93.4 fL (80.0-97.0); Mean Platelet Volume 10.1 fL (9.5-12.2); Monocytes # (A) 0.46 X 10*3/uL (0.20-1.00); Monocytes % (A) 6.9 %; NRBC Per 100 WBC 0 /100 WBCS (0.0-0.0); Neutrophils % (A) 69.1 %; Platelet Count 257 X 10*3/uL (140-440); RBC 4.26 X 10*6/uL (4.10-5.20); RDW 12.9 % (11.5-14.5); WBC 6.65 X 10*3/uL (4.50-10.00)
[2021-11-21 15:18] LABS: ALT 20 U/L (8-44); AST 20 U/L (13-35); African American GFR (CKD) 100.7 (60.0-200.0); Albumin 4.5 g/dL (3.8-4.9); Albumin/Globulin Ratio 2.04 (1.60-3.17); Alkaline Phosphatase 54 U/L (41-126); BUN/Creat Ratio 19.98 Ratio (12.00-20.00); Blood Urea Nitrogen 16.6 mg/dL (9.0-27.0); Calcium 9.2 mg/dL (8.7-10.3); Carbon Dioxide 24.2 mmol/L (20.0-27.5); Chloride 105 mmol/L (96-109); Globulin 2.2 g/dL (1.6-3.3); Glucose 93 mg/dL (70-110); Non-African American GFR(CKD) 86.9 (60.0-200.0); Potassium 4.1 mmol/L (3.5-5.5); Sodium 140 mmol/L (135-145); Total Protein 6.7 g/dL (6.2-8.2)
== END | disposition home or self-care (01) ==
LOC: LABWHC1 09:27
PROVIDERS: ATTEND Family Medicine
DX: Z00.00 Encounter for general adult medical examination without abnormal findings (principal)
CPT/HCPCS: 36415; 80053; 80061; 82306; 84443; 85025

== ENCOUNTER → 2021-12-22 | Outpatient (CLI) | payer OTHER ==
--- NOTE | 2021-12-23 04:04 | MR ---
EXAMINATION TYPE: MR angio head wo con DATE OF EXAM: 12/22/2021 COMPARISON: None HISTORY: Cervicalgia, brain aneurysm, cervical disc degeneration, spondylosis MR angiographic images were obtained of the internal cerebral arterial circulation with no contrast. There is good visualization of the intracranial arteries. There is arterial flow in the vertebral bas ilar artery system. There is arterial flow in the distal internal carotid arteries bilaterally. There is arterial flow in the anterior middle and posterior cerebral arteries bilaterally. No mass ef fect. No evidence of intracranial neovascularity. No evidence of arterial stenosis. There is a sessil e bulging of the inferior wall of the left side distal internal carotid artery in the supraclinoid re gion. This measures 2.5 x 1.5 mm. 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 I do not see evidence of an aneurysm of the origin of the right posterior communicating artery. No evidence of any posterior communicating artery patency.
--- NOTE | 2021-12-23 04:07 | MR ---
EXAMINATION TYPE: MR cervical spine wo con DATE OF EXAM: 12/22/2021 COMPARISON: 03/07/2020 HISTORY: Cervicalgia, brain aneurysm, cervical disc degeneration, spondylosis Multiplanar multiecho imaging of the cervical spine with no contrast. Vertebra show some straightening. There is mild degenerative disc space narrowing from C3 to C6 level with posterior disc bulging. There is developmentally adequate spinal canal. Canal measures 7.5 mm a t C5-6 which is the narrowest point. Cervical cord shows normal signal pattern. The brainstem is inta ct. No compression fracture. No cervical paraspinal mass. IMPRESSION: Mild multilevel cervical degenerative disc changes and disc bulging. No significant spinal stenosis. No adverse change compared to old exam.
== END | disposition home or self-care (01) ==
LOC: RADMRIMAIN 08:22
PROVIDERS: ATTEND Nurse Practitioner Family
DX: I67.1 Cerebral aneurysm, nonruptured (principal); M50.30 Other cervical disc degeneration, unspecified cervical region; M47.812 Spondylosis without myelopathy or radiculopathy, cervical region
CPT/HCPCS: 70544; 72141

== ENCOUNTER → 2022-02-03 | Outpatient (CLI) | payer OTHER | END | disposition home or self-care (01) | LOC: LABWHC1 13:42 | PROVIDERS: ATTEND Internal Medicine Gastroenterology | DX: Z09 Encounter for follow-up examination after completed treatment for conditions other than malignant neoplasm (principal); Z83.79 Family history of other diseases of the digestive system | CPT/HCPCS: 36415; 83516 ==

== ENCOUNTER → 2022-05-07 | Outpatient (CLI) | payer OTHER ==
[2022-05-07 16:30] LABS: Creatinine,Urine Random 122.4 mg/dL; Protein/Creatinine Ratio,Urine 0.065
[2022-05-07 22:30] LABS: Basophils # (A) 0.03 X 10*3/uL (0.00-0.10); Basophils % (A) 0.4 %; Eosinophils # (A) 0.08 X 10*3/uL (0.04-0.35); Eosinophils % (A) 1.1 %; HCT 38.2 % (37.2-46.3); HGB 12.1 g/dL (12.0-15.0); Immature Grans, Automated 0.4 %; Lymphocytes # (A) 1.92 X 10*3/uL (0.90-5.00); Lymphocytes % (A) 26.2 %; MCH 30.3 pg (27.0-32.0); MCHC 31.7 g/dL (32.0-37.0); MCV 95.7 fL (80.0-97.0); Mean Platelet Volume 10.2 fL (9.5-12.2); Monocytes # (A) 0.38 X 10*3/uL (0.20-1.00); Monocytes % (A) 5.2 %; NRBC Per 100 WBC 0 /100 WBCS (0.0-0.0); Neutrophils % (A) 66.7 %; Platelet Count 288 X 10*3/uL (140-440); RBC 3.99 X 10*6/uL (4.10-5.20); RDW 12.3 % (11.5-14.5); WBC 7.34 X 10*3/uL (4.50-10.00)
[2022-05-07 22:51] LABS: % Iron Saturation 34.69 (12.00-45.00); African American GFR (CKD) 91.9 (60.0-200.0); Anion Gap 8.7 mmol/L (10.00-18.00); BUN/Creat Ratio 21.66 Ratio (12.00-20.00); Blood Urea Nitrogen 19.3 mg/dL (9.0-27.0); Calcium 9.2 mg/dL (8.7-10.3); Carbon Dioxide 30.3 mmol/L (20.0-27.5); Magnesium 2.1 mg/dL (1.5-2.4); Non-African American GFR(CKD) 79.3 (60.0-200.0); Uric Acid 3.5 mg/dL (2.9-7.7)
[2022-05-07 23:18] LABS: Albumin 4.4 g/dL (3.8-4.9)
[2022-05-08 00:19] LABS: Appearance,Urine Clear (Clear); Bilirubin,Urine Negative (Negative); Blood,Urine Negative (Negative); Color,Urine Yellow (Yellow); Ketones,Urine Negative (Negative); Nitrite,Urine Negative (Negative); PH, Urine 7.5 (5.0-8.0); Specific Gravity,Urine 1.021 (1.001-1.030); Urobilinogen,Urine 0.2 (0.2,1.0)
== END | disposition home or self-care (01) ==
LOC: LABWHC1 14:32
PROVIDERS: ATTEND Internal Medicine Nephrology
DX: Z87.442 Personal history of urinary calculi (principal)
CPT/HCPCS: 36415; 80048; 81003; 82040; 82043; 82306; 82570; 82728; 83540; 83550; 83735; 83970; 84100; 84156; 84550; 85025; 86334; 86335

== ENCOUNTER → 2023-02-03 | Outpatient (CLI) | payer OTHER ==
--- NOTE | 2023-02-04 08:03 | MM ---
Reason for Exam: Screening (asymptomatic). Last mammogram was performed 1 year(s) and 8 month(s) ago. Patient History: Menarche at age 13. First Full-Term at age 18. Right ovary removed at age 32. Hysterectomy at age 32. Perimenopausal. 08/31/2018, Benign Core Biopsy on the right side. 01/03/2020, Bilateral Implants. 2001, Bilateral Implants. Maternal grandmother had breast cancer, age 70. Maternal cousin had breast cancer, age 40. Maternal aunt had breast cancer. Risk Values: Ghazal 5 year model risk: 1.0%. NCI Lifetime model risk: 9.6%. Prior Study Comparison: 08/31/2018 Right Diagnostic Mammogram, [facility]. 05/08/2020 Bilateral Screening Mammogram, [facility]. 06/20/2021 Bilateral Screening Mammogram, [facility]. Tissue Density: The breast tissue is heterogeneously dense. This may lower the sensitivity of mammography. Findings: Analyzed By CAD. There is no suspicious group of microcalcifications or new suspicious mass in either breast. Biopsy clip within the right breast. Bilateral breast implants. Overall Assessment: Benign, BI-RAD 2 Management: Screening Mammogram of both breasts in 1 year. A clinical breast exam by your physician is recommended on an annual basis and results should be correlated with mammographic findings. Note on Ghazal scores and lifetime risk: 1. A Ghazal score greater than 3% is considered moderate risk. If this is the case, consider specialist referral to assess eligibility for a risk reducing agent. If overall lifetime risk for the development of breast cancer is 20% or higher, the patient may qualify for future screening with alternating mammogram and breast MRI. Electronically signed and approved by: Justo Villalta D.O.
== END | disposition home or self-care (01) ==
LOC: RADMAMWWP 07:31
PROVIDERS: ATTEND Internal Medicine Hematology & Oncology
DX: Z12.31 Encounter for screening mammogram for malignant neoplasm of breast (principal); Z80.3 Family history of malignant neoplasm of breast
CPT/HCPCS: 77063; 77067

== ENCOUNTER → 2023-02-03 | Outpatient (CLI) | payer OTHER ==
--- NOTE | 2023-02-03 13:12 | US ---
EXAMINATION TYPE: US abdomen complete DATE OF EXAM: 02/03/2023 COMPARISON: NONE CLINICAL INDICATION: Female, 42 years old with history of ABD PAIN; Pain gallbladder removed TECHNIQUE: Multiple sonographic images of the abdomen are obtained. FINDINGS: EXAM MEASUREMENTS: Liver Length: 13.9 cm Gallbladder Wall: Surgically absent CBD: .2 cm Spleen: 9.3 cm Right Kidney: 9.6 x 4.0 x 4.5 cm Left Kidney: 11.4 x 4.5 x 3.4 cm Pancreas: wnl Liver: wnl Gallbladder: wnl CBD: wnl Spleen: wnl Right Kidney: wnl Left Kidney: wnl Upper IVC: wnl Abd Aorta: wnl IMPRESSION: Status post cholecystectomy. Otherwise, unremarkable sonographic examination of the abdomen.
== END | disposition home or self-care (01) ==
LOC: RADUSWWP 07:33
PROVIDERS: ATTEND Internal Medicine Hematology & Oncology
DX: C85.98 Non-Hodgkin lymphoma, unspecified, lymph nodes of multiple sites (principal); D89.89 Other specified disorders involving the immune mechanism, not elsewhere classified; H35.52 Pigmentary retinal dystrophy; D64.9 Anemia, unspecified; K82.9 Disease of gallbladder, unspecified; N64.59 Other signs and symptoms in breast; Z90.49 Acquired absence of other specified parts of digestive tract
CPT/HCPCS: 76700

== ENCOUNTER → 2023-03-18 | Outpatient (CLI) | payer OTHER | END | disposition home or self-care (01) | LOC: LABWHC1 12:32 | PROVIDERS: ATTEND Internal Medicine Critical Care Medicine | DX: Z20.822 Contact with and (suspected) exposure to COVID-19 (principal) | CPT/HCPCS: 87635 ==

== ENCOUNTER → 2023-04-29 | Outpatient (CLI) | payer OTHER ==
--- NOTE | 2023-04-29 09:00 | MR ---
EXAMINATION TYPE: MR brain wo con DATE OF EXAM: 04/29/2023 8:48 AM COMPARISON: MR brain 03/06/2020, 03/24/2019. CLINICAL INDICATION:Female, 42 years old with history of G45.9, I67.1, M25.519, M75.102; [facility], TECHNIQUE: Multi planar, multi sequence imaging was performed through the brain. No gadolinium was gi jeana. FINDINGS: The eisenberg-white junctions, ventricular system, and cisterns appear unremarkable. Stable 3 mm posterio r superior left temporal deep white matter lesion. No new suspicious lesions. Midline structures show no abnormality. Diffusion-weighted imaging shows no evidence of restricted diffusion. The susceptibi lity weighted images do not reveal any evidence for micro-hemorrhage. Brain volume is age appropriate . The bone marrow signal is within normal limits. The paranasal sinuses and globes are unremarkable. IMPRESSION: 1. No evidence of acute/subacute infarct. 2. Stable 3 mm posterior superior left temporal deep white matter lesion. No new suspicious lesions.
--- NOTE | 2023-04-29 09:09 | MR ---
EXAMINATION TYPE: MR angio head wo con DATE OF EXAM: 04/29/2023 COMPARISON: MRA head 12/22/2021, 04/01/2020, 03/24/2019 HISTORY: Recheck vision loss, hx of retinal disease/optic neuritis, migraines, TECHNIQUE: Time of flight images focusing on the [place] of [place] were performed without contrast. FINDINGS: Vertebral arteries: The vertebral arteries are patent and codominant. Basilar artery: The basilar artery is intact. The basilar artery bifurcation is normal. Internal Carotid arteries: Patent. Previously suggested bulging of the inferior wall of the left side of the distal internal carotid artery in the supraclinoid region is not well appreciated on today's exam. DINORA: Patent with no evidence of aneurysm. ACOM: Present without evidence of aneurysm. MCA: Patent with no evidence of aneurysm. RELIEF PHARMACIST: Patent with no evidence of aneurysm. PCOM: There is again a 2 mm protuberance extending off the posterior communicating region of the righ t internal carotid artery. IMPRESSION: Similar 2 mm infundibulum versus tiny aneurysm of the right posterior communicating artery origin.
--- NOTE | 2023-05-01 09:54 | MR ---
EXAMINATION TYPE: MR shoulder LT wo con DATE OF EXAM: 04/29/2023 COMPARISON: None HISTORY: Left shoulder pain TECHNIQUE: Multiplanar, multisequence imaging of the left shoulder is performed without contrast. FINDINGS: There are mild degenerative changes at the AC joint resulting in minimal shoulder impingement. There is a large subchondral cyst in the lateral humeral head near the attachment of the rotator cuff . There is marked thickening and diffuse abnormal signal intensity in the supraspinatus and infraspinat us tendons with small intrasubstance tears and a small rim rent tear of the supraspinatus tendon. The re is no retraction of the musculotendinous junctions. The subscapularis tendon is intact. The biceps tendon is normal in signal intensity and position within the bicipital groove. The biceps tendon anchor is intact as is the superior cartilaginous labrum. On the axial images, small tear of t he anterior cartilaginous labrum is not excluded. MR arthrogram might be useful for further evaluatio n. There is mild subdeltoid bursitis. IMPRESSION: 1. Mild degenerative changes of the AC joint. 2. Marked tendinosis and intrasubstance tears of the supraspinatus and infraspinatus tendons and smal l rim rent tear of the supraspinatus tendon. 3. Cannot exclude small tear of the anterior cartilaginous labrum. MRI arthrogram might be useful for further evaluation. 4. Mild subdeltoid bursitis
== END | disposition home or self-care (01) ==
LOC: RADMRIMAIN 07:25
PROVIDERS: ATTEND Psychiatry & Neurology Neurology
DX: I67.1 Cerebral aneurysm, nonruptured (principal); G45.9 Transient cerebral ischemic attack, unspecified; G93.89 Other specified disorders of brain; M75.102 Unspecified rotator cuff tear or rupture of left shoulder, not specified as traumatic
CPT/HCPCS: 70544; 70551

== ENCOUNTER → 2023-06-04 | Outpatient (CLI) | payer OTHER ==
[2023-06-05 02:41] LABS: Basophils # (A) 0.05 X 10*3/uL (0.00-0.10); Basophils % (A) 0.6 %; Eosinophils # (A) 0.07 X 10*3/uL (0.04-0.35); Eosinophils % (A) 0.9 %; HCT 44.1 % (37.2-46.3); HGB 14.1 g/dL (12.0-15.0); Lymphocytes # (A) 2.06 X 10*3/uL (0.90-5.00); Lymphocytes % (A) 25.3 %; MCH 30.2 pg (27.0-32.0); MCV 94.4 FL (80.0-97.0); Mean Platelet Volume 9.9 FL (9.5-12.2); Monocytes % (A) 6.1 %; NRBC Per 100 WBC 0 X 10*3/uL (0.00-0.01); Neutrophils # (A) 5.43 X 10*3/uL (1.80-7.70); Neutrophils % (A) 66.7 %; Platelet Count 296 X 10*3/uL (140-440); RBC 4.67 X 10*6/uL (4.10-5.20); RDW 12.2 % (11.5-14.5); WBC 8.14 X 10*3/uL (4.50-10.00)
[2023-06-05 03:14] LABS: ALT 40 U/L (8-44); AST 34 U/L (13-35); Albumin 4.8 g/dL (3.8-4.9); Albumin/Globulin Ratio 2.09 Ratio (1.60-3.17); Alkaline Phosphatase 69 U/L (41-126); Blood Urea Nitrogen 20.8 mg/dL (9.0-27.0); Calcium 9.8 mg/dL (8.7-10.3); Carbon Dioxide 23.1 mmol/L (21.6-31.8); Chloride 102 mmol/L (96-109); Chol/HDL Ratio 2.61 Ratio; Globulin 2.3 g/dL (1.6-3.3); Glucose 69 mg/dL (70-110); LDL Cholesterol,Calculated 108.5 mg/dL (0.0-131.0); Potassium 4.5 mmol/L (3.5-5.5); Sodium 139 mmol/L (135-145); T4, Free (Free Thyroxine) 1.14 ng/dL (0.80-1.80); Total Bilirubin 0.5 mg/dL (0.3-1.2); Total Protein 7.1 g/dL (6.2-8.2); VLDL Calculation 12.26 mg/dL (5.00-40.00)
== END | disposition home or self-care (01) ==
LOC: LABWHC1 13:48
PROVIDERS: ATTEND Family Medicine
DX: Z13.220 Encounter for screening for lipoid disorders (principal); F32.9 Major depressive disorder, single episode, unspecified; E06.3 Autoimmune thyroiditis; E55.9 Vitamin D deficiency, unspecified
CPT/HCPCS: 36415; 80053; 80061; 82306; 84439; 84443; 85025

== ENCOUNTER → 2023-07-09 | Outpatient (CLI) | payer OTHER ==
--- NOTE | 2023-07-09 10:23 | USB ---
Reason for Exam: Clinical finding. Patient History: Menarche at age 13. First Full-Term at age 18. Right ovary removed at age 32. Hysterectomy at age 32. Perimenopausal. 08/31/2018, Benign Core Biopsy on the right side. 01/03/2020, Bilateral Implants. 2001, Bilateral Implants. Maternal grandmother had breast cancer, age 70. Maternal cousin had breast cancer, age 40. Maternal aunt had breast cancer. Risk Values: Ghazal 5 year model risk: 1.0%. NCI Lifetime model risk: 9.6%. Prior Study Comparison: 03/20/2019 Bilateral Diagnostic Ultrasound, [facility]. 05/08/2020 Bilateral Screening Mammogram, [facility]. 06/20/2021 Bilateral Screening Mammogram, [facility]. 02/03/2023 Bilateral MG 3D screen mammo imp/cad., [facility]. Findings: The whole breast of both breasts, the axilla of both breasts and the retroareolar of both breasts were scanned. At the 12:00 position there are 2 small hypoechoic areas. The first at 12:00 6 cm from the nipple measures 0.7 x 0.3 x 0.3 cm. Small fatty hilum appears to be present. Finding appears to be a small lymph node. At the 1:00 position there is a small hypoechoic area which is orthogonal imaging elongates out and appears normal parenchymal tissue. Additional evaluation with diagnostic mammogram is recommended.. Overall Assessment: Incomplete: need additional imaging evaluation, BI-RAD 0 Management: Diagnostic Mammogram of the left breast. A clinical breast exam by your physician is recommended on an annual basis and results should be correlated with mammographic findings. This exam should not preclude additional follow-up of suspicious palpable abnormalities. Results were given to the patient verbally at the time of exam. Electronically signed and approved by: Jerman Jasso D.O. Radiologis
--- NOTE | 2023-07-09 13:35 | MM ---
Reason for Exam: Follow-up at short interval from prior study. Last screening mammogram was performed 5 month(s) ago. Patient History: Menarche at age 13. First Full-Term at age 18. Right ovary removed at age 32. Hysterectomy at age 32. Perimenopausal. 08/31/2018, Benign Core Biopsy on the right side. 01/03/2020, Bilateral Implants. 2001, Bilateral Implants. Maternal grandmother had breast cancer, age 70. Maternal cousin had breast cancer, age 40. Maternal aunt had breast cancer. Risk Values: Ghazal 5 year model risk: 1.0%. NCI Lifetime model risk: 9.6%. Prior Study Comparison: 05/08/2020 Bilateral Screening Mammogram, [facility]. 06/20/2021 Bilateral Screening Mammogram, [facility]. 02/03/2023 Bilateral MG 3D screen mammo imp/cad., [facility]. Tissue Density: Left: The breast tissue is heterogeneously dense. This may lower the sensitivity of mammography. Findings: Analyzed By CAD. Pattern appears stable. No suspicious abnormality to correlate with the ultrasound findings. No suspicious groups of microcalcifications, spiculated or lobular masses, architectural distortion or other secondary signs of malignancy are mammographically apparent. Overall Assessment: Probably benign, BI-RAD 3 Management: Diagnostic Breast Ultrasound of the left breast in 3 months. A negative mammogram report should not preclude additional follow up of suspicious palpable abnormalities. Patient should continue monthly self breast exam. A clinical breast exam by your physician is recommended on an annual basis and results should be correlated with mammographic findings. Electronically signed and approved by: Jerman Jasso D.O. Radiologis
== END | disposition home or self-care (01) ==
LOC: RADUSWWP 09:32
PROVIDERS: ATTEND Obstetrics & Gynecology
DX: R92.332 Mammographic heterogeneous density, left breast (principal); Z80.3 Family history of malignant neoplasm of breast; Z98.82 Breast implant status
CPT/HCPCS: 77065; 76641; G0279; 77061

== ENCOUNTER → 2023-07-26 | Outpatient (CLI) | payer OTHER ==
--- NOTE | 2023-07-26 15:15 | CT ---
EXAMINATION TYPE: CT abdomen pelvis w con DATE OF EXAM: 07/26/2023 COMPARISON: 04/18/2020 INDICATION: Lymphoma, ovarian mass, bowel issues. Hx bladder sx, hysterectomy, karri, DLP: 773 mGycm, Automated exposure control for dose reduction was used. CONTRAST: 100 mL of Isovue 300. Study performed with Oral Contrast TECHNIQUE: Axial images were obtained from above the diaphragm to the pubic rami in the axial plane a t 5 mm thick sections. Reconstructed images are reviewed on the computer in the coronal plane. FINDINGS: Limited CT sections are obtained the lung bases. The lung bases are clear. Bilateral breast prosthe ses are present. CT ABDOMEN: Liver: Normal Spleen: Normal Pancreas: Normal Adrenal glands: The adrenal glands are normal. Gallbladder: Surgically absent Kidneys: No masses are evident. No hydronephrosis is present. No cysts are present. Delayed images were obtained through the kidneys, which remain unremarkable. Aorta: Normal Inferior vena cava: Normal. CT PELVIS: Loops of bowel within the abdomen and pelvis are normal. There are loops of bowel which are incom pletely distended or lack oral contrast limiting their evaluation. Fecal debris is within the colon. Appendix: Not identified. No dilated tubular structure or inflammatory changes evident. Urinary bladder: Normal. Genitourinary structures: 1.5 cm cyst may be present on the left ovary. Osseous structures: No suspicious lytic or sclerotic lesions. IMPRESSION: 1. 1.5 cm left ovarian cyst. 2. No suspicious acute changes. 3. No suspicious adenopathy to suggest recurrent lymphoma
== END | disposition home or self-care (01) ==
LOC: RADCTMAIN 12:06
PROVIDERS: ATTEND Internal Medicine Hematology & Oncology
DX: N83.202 Unspecified ovarian cyst, left side (principal); C85.98 Non-Hodgkin lymphoma, unspecified, lymph nodes of multiple sites; N83.9 Noninflammatory disorder of ovary, fallopian tube and broad ligament, unspecified
CPT/HCPCS: 74177; Q9967

== ENCOUNTER → 2023-08-05 | Outpatient (CLI) | payer OTHER ==
--- NOTE | 2023-08-06 07:37 | US ---
EXAMINATION TYPE: US thyroid st tissue head/neck DATE OF EXAM: 08/05/2023 COMPARISON: NONE CLINICAL INDICATION: Female, 42 years old with history of E04.2 NONTOXIC MULTINODULAR GOITER; goiter GLAND SIZE: Right Lobe: 5.5 x 1.5 x 1.5 cm Overall Parenchyma: homogeneous Left Lobe: 4.2 x 1.2 x 1.6 cm Overall Parenchyma: homogeneous Isthmus Thickness: .2 cm NODULES RIGHT: # of nodules measured on right: 0 LEFT: # of nodules measured on left: 0 ISTHMUS: # of nodules measured in the isthmus: 0 Bilateral neck scanned, no evidence of lymphadenopathy. IMPRESSION: No discrete abnormality seen. 2017 ACR TI-RADS LEVEL: *Highest TI-RADS level nodule reported
== END | disposition home or self-care (01) ==
LOC: RADUSWWP 16:32
PROVIDERS: ATTEND Internal Medicine
DX: E04.2 Nontoxic multinodular goiter (principal)
CPT/HCPCS: 76536

== ENCOUNTER → 2023-10-11 | Outpatient (CLI) | payer OTHER ==
--- NOTE | 2023-10-11 09:56 | USB ---
Reason for Exam: Follow-up at short interval from prior study. Patient History: Menarche at age 13. First Full-Term at age 18. Right ovary removed at age 32. Hysterectomy at age 32. Perimenopausal. 08/31/2018, Benign Core Biopsy on the right side. 01/03/2020, Bilateral Implants. 2001, Bilateral Implants. Maternal grandmother had breast cancer, age 70. Maternal cousin had breast cancer, age 40. Maternal aunt had breast cancer. Risk Values: Ghazal 5 year model risk: 1.0%. NCI Lifetime model risk: 9.6%. Technique: Method: Targeted. Prior Study Comparison: 06/20/2021 Bilateral Screening Mammogram, [facility]. 02/03/2023 Bilateral MG 3D screen mammo imp/cad., [facility]. 07/09/2023 Bilateral US breast BILAT, [facility]. 07/09/2023 Left MG diag mamm implant LT w cad, [facility]. Findings: The upper section of the breast of the left breast, the axilla of the left breast and the retroareolar of the left breast were scanned. The 12:00 position 6 cm in the nipple there is a persistent 0.5 x 0.2 x 0.4 cm. This is slightly smaller than the comparison study. No suspicious interval change is evident. Note is made at the 1:00 position of a similar smaller 0.3 cm hypoechoic area. Overall Assessment: Probably benign, BI-RAD 3 Management: Diagnostic Breast Ultrasound of the left breast in 6 months. A clinical breast exam by your physician is recommended on an annual basis and results should be correlated with mammographic findings. This exam should not preclude additional follow-up of suspicious palpable abnormalities. Results were given to the patient verbally at the time of exam. Electronically signed and approved by: Jerman Jasso D.O. Radiologis
== END | disposition home or self-care (01) ==
LOC: RADUSWWP 08:44
PROVIDERS: ATTEND Obstetrics & Gynecology
DX: N60.02 Solitary cyst of left breast (principal); Z80.3 Family history of malignant neoplasm of breast

== ENCOUNTER → 2023-11-26 | Outpatient (CLI) | payer OTHER ==
--- NOTE | 2023-11-26 16:48 | MR ---
EXAMINATION TYPE: MR cervical spine wo con DATE OF EXAM: 11/26/2023 COMPARISON: 12/22/2021 HISTORY: Headaches, neck pain into fox upper extremities CONTRAST: Performed utilizing 0 mL intravenous Gadavist gadolinium contrast. TECHNIQUE: Multiplanar multiecho imaging on a 3.0 Trupti magnet is performed through the cervical spin e. FINDINGS: The craniovertebral junction is normal. Vertebral body alignment has some mild kyphosis ce ntered in the lower cervical spine. This is stable from comparison there is narrowing of disc heigh t C5-6. C7-T1: No focal disc herniation or significant disc bulge is evident. No spinal canal stenosis or n eural foraminal stenosis is present. C6-7: Broad-based disc bulge with mild anterior thecal sac compression. No AP spinal canal stenosis i s present. Neural foramen are patent.. C5-6: There is broad central disc bulge with anterior thecal sac compression. No AP spinal canal sten osis is present. Neural foramen are patent. C4-5: Mild broad-based disc bulge is present without cord contact or spinal canal stenosis. Neural fo ramen are patent. C3-4: Disc bulge is present. No cord contact is evident. No spinal canal stenosis.. C2-3: No focal disc herniation or significant disc bulge is evident. No spinal canal stenosis or stuart ral foraminal stenosis is present. IMPRESSION: 1. Stable disc bulges mid to lower cervical spine with anterior thecal sac compression. No cord conta ct or spinal canal stenosis is present. Findings appear stable and there is some kyphosis present whi ch is similar to comparison
== END | disposition home or self-care (01) ==
LOC: RADMRIMAIN 13:05
PROVIDERS: ATTEND Psychiatry & Neurology Neurology
DX: M50.31 Other cervical disc degeneration, high cervical region (principal)
CPT/HCPCS: 72141

== ENCOUNTER → 2024-06-16 | Outpatient (CLI) | payer OTHER ==
--- NOTE | 2024-06-16 09:47 | USB ---
Reason for Exam: Follow-up at short interval from prior study. Patient History: Menarche at age 13. First Full-Term at age 18. Right ovary removed at age 32. Hysterectomy at age 32. Perimenopausal. 08/31/2018, Benign Core Biopsy on the right side. 01/03/2020, Bilateral Implants. 2001, Bilateral Implants. Maternal grandmother had breast cancer, age 70. Maternal cousin had breast cancer, age 40. Maternal aunt had breast cancer. Risk Values: Ghazal 5 year model risk: 1.0%. NCI Lifetime model risk: 9.5%. Technique: Method: Targeted. Prior Study Comparison: 06/20/2021 Bilateral Screening Mammogram, [facility]. 02/03/2023 Bilateral MG 3D screen mammo imp/cad., [facility]. 07/09/2023 Left MG diag mamm implant LT w cad, [facility]. Findings: The upper outer quadrant of the left breast, the axilla of the left breast and the retroareolar of the left breast were scanned. No solid or cystic masses are identified.. Overall Assessment: Negative, BI-RAD 1 Management: Screening Mammogram of both breasts in 6 months. A clinical breast exam by your physician is recommended on an annual basis and results should be correlated with mammographic findings. This exam should not preclude additional follow-up of suspicious palpable abnormalities. Results were given to the patient verbally at the time of exam. [facility], , 06/16/2024 9:45 AM. Electronically signed and approved by: Jose Guadalupe Brandon M.D. Radiologis
== END | disposition home or self-care (01) ==
LOC: RADUSWWP 09:18
PROVIDERS: ATTEND Obstetrics & Gynecology
DX: R92.8 Other abnormal and inconclusive findings on diagnostic imaging of breast (principal); Z90.721 Acquired absence of ovaries, unilateral; Z80.3 Family history of malignant neoplasm of breast